=== PATIENT | male | born 1950 | race Caucasian/White ===

== ENCOUNTER 2021-10-03 09:02 | Inpatient (IN) | payer MEDICARE, SELFPAY ==
[2021-10-03] VITALS (57 sets, daily range): BP systolic 89–155; BP diastolic 54–109; PULSE 46–116; RESP 5–38; TEMP 36–36.8; O2SAT 76–97
--- NOTE | 2021-10-03 09:00 | RT.EKG_ITS ---
APPROVED REPORT Exam: Resting ECG Reason for Exam: covid Patient Location: E HR:98 bpm ECG Measurements Heart Rate 98 AXIS AK 108 P 55 QRSd 84 QRS 24 QT 362 T 39 QTc 463 Conclusion Sinus rhythm...normal P axis, V-rate 60- 99 Consider left ventricular hypertrophy...(S V1+R V5/V6) >3.50mV
--- NOTE | 2021-10-03 09:30 | DI.CT_ITS ---
Exam(s) CT CHEST PE CTA EXAM: CT CHEST PE CTA CLINICAL HISTORY: hypoxia, covid. TECHNIQUE: Imaging Protocol: Axial CT angiography was performed with multi-slice acquisition and mu lti-planar and/or 3D reconstructions. CONTRAST MATERIAL: Intravenous: Omnipaque 350 Contrast volume:100 mL COMPARISON: CT CHEST FOR PULMONARY EMBOLUS from 01/20/2011 FINDINGS: Tracheobronchial tree: Patent where visualized. Pulmonary parenchyma: Multifocal ground-glass opacities are present consistent with pneumonia. Findi ngs would be consistent with a COVID-19 infection. Emphysematous changes are present in the lungs. Calcified granuloma is seen in the left upper lobe. There is again seen scarring in the lung apices and the right middle lobe associated with the fissure. Pulmonary Arteries: No evidence of filling defect to suggest pulmonary emboli. Mediastinum and Breanne: No dominant adenopathy or fluid collection. The esophagus is unremarkable. Visualized thyroid gland: Unremarkable. Pleura: No effusion or pneumothorax. Heart: The heart is not dilated. No coronary artery calcifications are seen. No pericardial effusion. Aorta: Thoracic aorta non-dilated. No evidence of dissection. Atherosclerosis. Upper abdomen: Unremarkable. Soft tissues: Mild bilateral gynecomastia. Bones: Within normal limits for the patient's age. IMPRESSION: 1. No evidence of pulmonary embolism, thoracic aortic dissection or aneurysm. 2. Multifocal ground-glass opacities consistent with pneumonia. The findings would be consistent wit h a COVID-19 infection. 3. Results of this exam have been verbally communicated with provider. RADIATION DOSE DELIVERED: 380.46mGy.cm Total DLP DATA REPOSITORY: All CT scans at this facility are submitted to the National Radiology Data Registry (NRDR) Dose Index Registry (DIR) with the [employer] (A[employer]). RADIATION OPTIMIZATION: All CT scans at this facility use at least one of these dose optimization te chniques: automated exposure control; mA and/or kV adjustment per patient size (includes targeted exa ms where dose is matched to clinical indication); or iterative reconstruction.
[2021-10-03 09:42] LABS: Abs Immature Grans 0.02 10^3/uL (0.0-0.06); Absolute Basophil Count 0.01 10^3/uL (0.0-0.2); Absolute Lymphocyte Count 0.65 10^3/uL (1.2-3.4); Absolute Monocyte Count 0.55 10^3/uL (0.1-0.8); Absolute Neutrophil Count 5.07 10^3/uL (1.2-6.7); Basophils % 0.2; HCT 46.5 % (40.0-50.0); HGB 16.1 g/dL (13.5-17.5); Immature Grans % 0.3; Lymphocytes % 10.3; MCH 33.3 pg (27.0-33.0); MCHC 34.6 % (32.0-36.0); MCV 96.3 fL (80-95); MPV 10.7 fL (8.0-11.0); Monocytes % 8.7; Neutrophils % 80.5; Nucleated RBC 0 %; Platelet Count 212 10^3/uL (130-400); RBC 4.83 10^6/uL (4.36-5.78); RDW 12.5 % (11.8-14.1); RDW-SD 45.3 fL
[2021-10-03 09:43] LABS: BE (Venous) 0 mmol/L (-2-3); HCO3 (Venous) 23 mmol/L (23-28); O2 Sat (Venous) 96 %; TCO2 (Venous) 24 mmol/l (24-29); pCO2 (Venous) 31 mmHg (41-51); pH (Venous) 7.49 (7.31-7.41); pO2 (Venous) 75 mmHg
[2021-10-03 09:44] LABS: Lactate 3.8 mmol/L (0.9-1.7)
[2021-10-03] MEDS: Dexamethasone 4 MG/ML VIAL 6 MG IVP (09:48)
[2021-10-03] MEDS: Normal Saline 1,000 ML 1000 ML IV (09:48)
[2021-10-03 09:49] LABS: Source Nasal/Nares
[2021-10-03] MEDS: Albuterol/Ipratropium 3 ML UPD VIAL UPD (09:53)
[2021-10-03 10:03] LABS: ALT 88 U/L (16-63); AST 127 U/L (15-37); Alkaline Phosphatase 105 U/L (46-116); BUN 18 mg/dL (7-18); CREATININE 1.1 mg/dL (0.70-1.30); Calcium 8.7 mg/dL (8.5-10.1); Chloride 99 mmol/L (98-107); Glucose 161 mg/dL (74-106); Potassium 3.3 mmol/L (3.5-5.1); Sodium 134 mmol/L (136-145); Total Protein 7.7 g/dL (6.4-8.2); Troponin I < 50 ng/L (<or=60)
[2021-10-03 10:08] LABS: NT-proBNP 344 pg/mL (<300)
[2021-10-03] MEDS: cefTRIAXone 2 GM/50 ML BAG IVPB (10:08)
[2021-10-03 10:20] LABS: D-Dimer 1358 ng/mlFEU (<500)
[2021-10-03 10:29] LABS: Influenza A PCR Negative (Negative); Influenza B PCR Negative (Negative); RSV PCR Negative (Negative)
[2021-10-03 10:31] LABS: COVID-19 PCR POSITIVE (Negative)
--- NOTE | 2021-10-03 10:40 | ED.GENADUL_ITS ---
Discharge Plan Disposition Patient Disposition: [facility] INPATIENT Condition: Critical Discharge Details Clinical Impression: Pneumonia due to COVID-19 virus, Respiratory failure Admit Date/Time: 10/03/21 12:12 Admit Provider: Iftikhar Tse Attending Provider: Iftikhar Tse Primary Care Provider: Kierra Lopez V ED Provider: Gertrude Torres Discharge Data Discharge Date/Time-TO BE ENTERED AT DEPARTURE: 10/03/21 13:16 Medical Decision Making <Jaison Shah MD - Last Filed: 10/09/21 16:46> Patient seen, examined, and discussed with CHEVY Torres. I agree with treatment plan as discussed/documented. <CHEVY Esparza - Last Filed: 10/04/21 08:33> Patient appears chronically unwell He is quite hypoxic, 70% on room air, he is placed on supplemental oxygen at 2 L, he remains 84% He was subsequently placed on BiPAP by respiratory therapist, please see their documentation He is tolerating this well His CODE STATUS is DNR/DNI, this was confirmed with patient's on 2 separate occasions There was mention that patient has history of alcoholism, he has not had a drink for the past 2 years he reports He is Covid vaccinated but has not received booster His CT of his chest does not show evidence of PE but diffuse bilateral interstitial infiltrates consistent with likely Covid pneumonia He is given a dose of Decadron 6 mg, remdesivir, 200 mg, IV fluid resuscitation His lactate is markedly elevated at 3.68 however he is not in septic shock at this time therefore fluid infusion will be ordered Again attempt to order VBG upon arrival, however this was reportedly canceled, we will redraw Covid swab is positive Patient will need admission for further observation and intervention He is agreeable to admission at this time He is not exhibited any signs or symptoms of alcohol withdrawal and was placed on CIWA upon arrival Did give 1 dose of 2 g of ceftriaxone given lactic acidosis and pneumonia, I will leave further antibiotic use to the discretion of the admitting provider Case discussed with Dr. Tse who is agreed to admit the patient Please see attendings ED EKG interpretation Medical Records Medical records reviewed: Yes I reviewed the patient's medical records. Lab Data Lab results reviewed: Yes I reviewed the patient's lab results. ECG Data Prior ECG tracings: available for review HPI <Jaison Shah MD - Last Filed: 10/09/21 16:46> General Date/Time Provider Initiated Documentation: 10/03/21 09:11 . Related Data Home Medications Medication Instructions Recorded Confirmed Unknown [No Known Home Meds] 10/03/21 10/07/21 Allergies Allergy/AdvReac Type Severity Reaction Status Date / Time No Known Allergies Allergy Unverified 10/07/21 09:50 <CHEVY Esparza - Last Filed: 10/04/21 08:33> General Mode of arrival: ambulatory . Limitations to Documentation: no limitations . Information obtained by: patient . HPI Narrative: This 70-year-old male who denies any current medications or medical history presents with 2 days of shortness of breath and pain. He a Covid test 2 days a go which was positive. He states that today secondary to progressive worsening of the shortness of breath, he presents for assessment. He states he has chest pain with cough only. He denies any nausea or vomiting. He denies any fever or chills. He denies history of coagulopathy. He denies any calf pain or swelling. He denies any rashes or lesions. Patient states that he is vaccinated but not restarted. He reports sore throat and mild headache. Patient denies tobacco abuse or history of COPD. General Stated Complaint: RespSymp ADA: 3 <CHEVY Esparza - Last Filed: 10/04/21 08:33> All systems reviewed & are unremarkable except as noted in HPI and below PFSH <Jaison Shah MD - Last Filed: 10/09/21 16:46> All Active Problems (Updated 10/07/21 @ 16:16 by Omayra Gould MD) Discharge planning issues (Acute) DVT prophylaxis (Acute) Secondary bacterial pneumonia (Acute) Hypoxia (Acute) Requires supplemental oxygen (Acute) Respiratory failure with hypoxia (Acute) Transaminitis (Acute) Hyponatremia (Acute) Pneumonia due to COVID-19 virus (Acute) Medical History Alcohol abuse no reported drink for 2 years Social History Smoking/Tobacco Use Status: Never Smoking risk assessment performed?: Yes Alcohol Intake: former Drug use: Never Substance use type: does not use Do you feel safe at home: Yes Do you feel safe in your relationship?: Yes <CHEVY Esparza - Last Filed: 10/04/21 08:33> Const General: ill appearing Orientation: alert and oriented x3 HENMT Other: Uvula midline, moist mucous membrane, rhinorrhea Eyes Pupils: PERRL Neck Other: No stridor Resp Other: Diminished lung sounds and tachypneic, mild respiratory distress, no wheeze Cardio Rate: tachycardic Rhythm: regular rhythm GI Other: Nontender abdominal exam Skin General skin exam: no rashes or lesions noted Neuro General: patient alert and patient oriented x3 Extrem Other: No calf swelling or tenderness <CHEVY Esparza - Last Filed: 10/04/21 08:33> Vital Signs Vital signs: Vital Signs Temperature 36.8 C 10/03/21 09:10 Pulse 111 H 10/03/21 09:10 Respiratory Rate 22 10/03/21 09:10 Blood Pressure 137/69 10/03/21 09:10 Pulse Oximetry 76 L 10/03/21 09:10 Temperature 36.8 C 10/03/21 09:10 Temperature Source Temporal Artery Scan 10/03/21 09:10 Pulse 101 H 10/03/21 10:16 Pulse 83 10/03/21 10:16 Respiratory Rate 20 10/03/21 10:16 Respiratory Effort 10/03/21 10:14 Respiratory Depth Normal 10/03/21 10:14 Blood Pressure 122/77 10/03/21 10:16 Blood Pressure Mean 87 10/03/21 10:16 Blood Pressure Position Sitting 10/03/21 09:10 Pulse Oximetry 95 10/03/21 10:16 Oxygen Delivery Method Cpap 10/03/21 10:24 Oxygen Flow Rate 0 10/03/21 09:10 Fraction of Inspired Oxygen (FIO2) 40 10/03/21 10:24 Comment 10/03/21 10:24 Lab/Test Results Lab/Test Results: 10/03/21 09:30 Blood Blood Culture - Pending 10/03/21 09:40 Blood Blood Culture - Pending Laboratory Tests Range/Units 10/03/21 10/03/21 10/03/21 09:30 09:30 09:30 WBC (4.4-10.8) 10^3/uL 6.30 RBC (4.36-5.78) 10^6/uL 4.83 Hgb (13.5-17.5) g/dL 16.1 Hct (40.0-50.0) % 46.5 MCV (80-95) fL 96.3 H MCH (27.0-33.0) pg 33.3 H MCHC (32.0-36.0) % 34.6 RDW (11.8-14.1) % 12.5 Plt Count (130-400) 10^3/uL 212 MPV (8.0-11.0) fL 10.7 Immature Gran % 0.3 Neutrophils % 80.5 Lymphocytes % 10.3 Monocytes % 8.7 Eosinophils % 0.0 Basophils % 0.2 Nucleated RBC % % 0 Absolute Neutrophils (1.2-6.7) 10^3/uL 5.07 Absolute Lymphocytes (1.2-3.4) 10^3/uL 0.65 L Absolute Monocytes (0.1-0.8) 10^3/uL 0.55 Absolute Eosinophils (0.0-0.7) 10^3/uL 0.00 Absolute Basophils (0.0-0.2) 10^3/uL 0.01 D-Dimer (<500) ng/mlFEU VBG pH (7.31-7.41) VBG pCO2 (41-51) mmHg VBG pO2 mmHg VBG HCO3 (23-28) mmol/L VBG Total CO2 (24-29) mmol/l VBG O2 Saturation % VBG Base Excess (-2-3) mmol/L VBG Lactate (0.9-1.7) mmol/L 3.8 H* Sodium (136-145) mmol/L 134 L Potassium (3.5-5.1) mmol/L 3.3 L Chloride (98-107) mmol/L 99 Carbon Dioxide (21.0-32.0) mmol/L 23.0 Anion Gap (3-11) mmol/L 12.0 H BUN (7-18) mg/dL 18 Creatinine (0.70-1.30) mg/dL 1.1 Estimated GFR/1.73 m2 (mL/min/1.73m2) >= 60.00 Glucose (74-106) mg/dL 161 H Calcium (8.5-10.1) mg/dL 8.7 Total Bilirubin (0.2-1.0) mg/dL 1.0 AST (15-37) U/L 127 H ALT (16-63) U/L 88 H Alkaline Phosphatase (46-116) U/L 105 Troponin I (<or=60) ng/L < 50 NT-Pro-B Natriuret Pep (<300) pg/mL Total Protein (6.4-8.2) g/dL 7.7 Albumin (3.4-5.0) g/dL 3.0 L COVID-19 Source SARS-CoV-2 (PCR) (Negative) Influenza Type A (PCR) (Negative) Influenza Type B (PCR) (Negative) RSV (PCR) (Negative) Range/Units 10/03/21 10/03/21 10/03/21 09:30 09:30 09:40 WBC (4.4-10.8) 10^3/uL RBC (4.36-5.78) 10^6/uL Hgb (13.5-17.5) g/dL Hct (40.0-50.0) % MCV (80-95) fL MCH (27.0-33.0) pg MCHC (32.0-36.0) % RDW (11.8-14.1) % Plt Count (130-400) 10^3/uL MPV (8.0-11.0) fL Immature Gran % Neutrophils % Lymphocytes % Monocytes % Eosinophils % Basophils % Nucleated RBC % % Absolute Neutrophils (1.2-6.7) 10^3/uL Absolute Lymphocytes (1.2-3.4) 10^3/uL Absolute Monocytes (0.1-0.8) 10^3/uL Absolute Eosinophils (0.0-0.7) 10^3/uL Absolute Basophils (0.0-0.2) 10^3/uL D-Dimer (<500) ng/mlFEU 1358 H VBG pH (7.31-7.41) 7.49 H VBG pCO2 (41-51) mmHg 31 L VBG pO2 mmHg 75 VBG HCO3 (23-28) mmol/L 23 VBG Total CO2 (24-29) mmol/l 24 VBG O2 Saturation % 96 VBG Base Excess (-2-3) mmol/L 0 VBG Lactate (0.9-1.7) mmol/L Sodium (136-145) mmol/L Potassium (3.5-5.1) mmol/L Chloride (98-107) mmol/L Carbon Dioxide (21.0-32.0) mmol/L Anion Gap (3-11) mmol/L BUN (7-18) mg/dL Creatinine (0.70-1.30) mg/dL Estimated GFR/1.73 m2 (mL/min/1.73m2) Glucose (74-106) mg/dL Calcium (8.5-10.1) mg/dL Total Bilirubin (0.2-1.0) mg/dL AST (15-37) U/L ALT (16-63) U/L Alkaline Phosphatase (46-116) U/L Troponin I (<or=60) ng/L NT-Pro-B Natriuret Pep (<300) pg/mL 344 H Total Protein (6.4-8.2) g/dL Albumin (3.4-5.0) g/dL COVID-19 Source SARS-CoV-2 (PCR) (Negative) Influenza Type A (PCR) (Negative) Influenza Type B (PCR) (Negative) RSV (PCR) (Negative) Range/Units 10/03/21 09:45 WBC (4.4-10.8) 10^3/uL RBC (4.36-5.78) 10^6/uL Hgb (13.5-17.5) g/dL Hct (40.0-50.0) % MCV (80-95) fL MCH (27.0-33.0) pg MCHC (32.0-36.0) % RDW (11.8-14.1) % Plt Count (130-400) 10^3/uL MPV (8.0-11.0) fL Immature Gran % Neutrophils % Lymphocytes % Monocytes % Eosinophils % Basophils % Nucleated RBC % % Absolute Neutrophils (1.2-6.7) 10^3/uL Absolute Lymphocytes (1.2-3.4) 10^3/uL Absolute Monocytes (0.1-0.8) 10^3/uL Absolute Eosinophils (0.0-0.7) 10^3/uL Absolute Basophils (0.0-0.2) 10^3/uL D-Dimer (<500) ng/mlFEU VBG pH (7.31-7.41) VBG pCO2 (41-51) mmHg VBG pO2 mmHg VBG HCO3 (23-28) mmol/L VBG Total CO2 (24-29) mmol/l VBG O2 Saturation % VBG Base Excess (-2-3) mmol/L VBG Lactate (0.9-1.7) mmol/L Sodium (136-145) mmol/L Potassium (3.5-5.1) mmol/L Chloride (98-107) mmol/L Carbon Dioxide (21.0-32.0) mmol/L Anion Gap (3-11) mmol/L BUN (7-18) mg/dL Creatinine (0.70-1.30) mg/dL Estimated GFR/1.73 m2 (mL/min/1.73m2) Glucose (74-106) mg/dL Calcium (8.5-10.1) mg/dL Total Bilirubin (0.2-1.0) mg/dL AST (15-37) U/L ALT (16-63) U/L Alkaline Phosphatase (46-116) U/L Troponin I (<or=60) ng/L NT-Pro-B Natriuret Pep (<300) pg/mL Total Protein (6.4-8.2) g/dL Albumin (3.4-5.0) g/dL COVID-19 Source Nasal/Nares SARS-CoV-2 (PCR) (Negative) POSITIVE A* Influenza Type A (PCR) (Negative) Negative Influenza Type B (PCR) (Negative) Negative RSV (PCR) (Negative) Negative <CHEVY Esparza - Last Filed: 10/04/21 08:33> Critical Care Time Critical Care Time: Yes Total Critical Care Time: 60 Attestation: BiPAP administration, telemetry monitoring, IV antibiotic intervention, IV fluid intervention, diagnostic labs, diagnostic imaging, post BiPAP monitoring, admission to intensive care unit
[2021-10-03] MEDS: REMDESIVIR 200 MG in Normal Saline 250 ML 250 MG IVPB (11:22)
[2021-10-03] MEDS: Omnipaque 350 MG/ML 100 ML BTL IJ (11:32)
[2021-10-03 12:53] LABS: Lab Add On Test DONE
[2021-10-03 13:08] LABS: C-Reactive Protein 11.45 mg/dL (0.0-0.3)
--- NOTE | 2021-10-03 14:24 | W.PM.HP.N ---
Date of service: 10/03/21 Time of Service: 14:25 Assessment and Plan Assessment and plan (1) Pneumonia due to COVID-19 virus: Status: Acute Assessment and plan: Unvaccinated. Initiated Remdesivir, dexamethasone, baricitinib, Vit D, C and zinc. CPAP alternating with Hiflow. D dimer 1358. CRP 11.45. Trend inflammatory markers. Avoid volume overload. (2) Hyponatremia: Status: Acute Assessment and plan: Mild; monitor. Likely related to viral infection / COVID. (3) Hypokalemia: Status: Acute Assessment and plan: Replace with oral K Monitor (4) Alcohol abuse: Status: Chronic Assessment and plan: Monitor for signs/sxs of withdrawal. PRN ativan. If appears to be withdrawing will initiate CIWA protocol. (5) Transaminitis: Status: Acute Assessment and plan: Likely Etoh abuse related. Monitor. History of Present Illness History of Present Illness Chief Complaint: Shortness of breath Narrative: This is a 70 yo male with no known PMH though he doesn't see a doctor or other provider. On no home medications. He tested positive for COVID-19 2 days prior to presentation. C/O shortness of air. No loss of taste or sense of smell. In the ED Covid-19 confirmed as positive. WBC count normal. Na 134. K 3.3. Creatinine 1.1. Glucose 161. AST 127. ALT 88. NTProBNP 344 CT chest results: 1. No evidence of pulmonary embolism, thoracic aortic dissection or aneurysm. 2. Multifocal ground-glass opacities consistent with pneumonia. The findings would be consistent with a COVID-19 infection. Placed on CPAP in ED; tolerated well. Review of Systems All systems reviewed & are unremarkable except as noted in HPI and below PFSH All Active Problems (Updated 10/03/21 @ 14:45 by Iftikhar Tse MD) Transaminitis (Acute) Alcohol abuse (Chronic) Hypokalemia (Acute) Hyponatremia (Acute) Pneumonia due to COVID-19 virus (Acute) Social History Smoking/Tobacco Use Status: Never Smoking risk assessment performed?: Yes Alcohol Intake: former Drug use: Never Substance use type: does not use Do you feel safe at home: Yes Do you feel safe in your relationship?: Yes Meds Allergies and Home Medications Allergies Allergy/AdvReac Type Severity Reaction Status Date / Time No Known Allergies Allergy Unverified 10/03/21 14:51 Home Medications Medication Instructions Recorded Confirmed Type Unknown [No Known Home Meds] 10/03/21 10/03/21 History Exam Const General: cooperative, no acute distress and other (CPAP in place) Nutritional Appearance: thin Orientation: alert and oriented x3 HENMT Head: normal to inspection, normocephalic and atraumatic Eyes General: appearance normal, both eyes and all related structures Sclera: sclerae normal Resp Effort & Inspection: normal respiratory effort Auscultation: clear to auscultation bilaterally (anterior) Cardio Rate: regular rate Rhythm: regular rhythm Heart Sounds: S1 normal and S2 normal GI Palpation: soft and nontender Skin General skin exam: no rashes or lesions noted and other (multiple tattoos) Neuro General: moves all extremities Speech: speech normal Extrem General: no pedal edema and no calf tenderness Results Labs Result diagrams: 10/03/21 09:30 10/03/21 09:30 Labs: Laboratory Results - last 24 hr 10/03/21 10/03/21 10/03/21 09:30 09:30 09:30 WBC 6.30 RBC 4.83 Hgb 16.1 Hct 46.5 MCV 96.3 H MCH 33.3 H MCHC 34.6 RDW 12.5 Plt Count 212 MPV 10.7 Immature Gran % 0.3 Neutrophils % 80.5 Lymphocytes % 10.3 Monocytes % 8.7 Eosinophils % 0.0 Basophils % 0.2 Nucleated RBC % 0 Absolute Neutrophils 5.07 Absolute Lymphocytes 0.65 L Absolute Monocytes 0.55 Absolute Eosinophils 0.00 Absolute Basophils 0.01 D-Dimer VBG pH VBG pCO2 VBG pO2 VBG HCO3 VBG Total CO2 VBG O2 Saturation VBG Base Excess VBG Lactate 3.8 H* Sodium 134 L Potassium 3.3 L Chloride 99 Carbon Dioxide 23.0 Anion Gap 12.0 H BUN 18 Creatinine 1.1 Estimated GFR/1.73 m2 >= 60.00 Glucose 161 H Calcium 8.7 Total Bilirubin 1.0 AST 127 H ALT 88 H Alkaline Phosphatase 105 Troponin I < 50 C-Reactive Protein NT-Pro-B Natriuret Pep Total Protein 7.7 Albumin 3.0 L COVID-19 Source SARS-CoV-2 (PCR) Influenza Type A (PCR) Influenza Type B (PCR) RSV (PCR) Add-On Test Request 10/03/21 10/03/21 10/03/21 09:30 09:30 09:40 WBC RBC Hgb Hct MCV MCH MCHC RDW Plt Count MPV Immature Gran % Neutrophils % Lymphocytes % Monocytes % Eosinophils % Basophils % Nucleated RBC % Absolute Neutrophils Absolute Lymphocytes Absolute Monocytes Absolute Eosinophils Absolute Basophils D-Dimer 1358 H VBG pH 7.49 H VBG pCO2 31 L VBG pO2 75 VBG HCO3 23 VBG Total CO2 24 VBG O2 Saturation 96 VBG Base Excess 0 VBG Lactate Sodium Potassium Chloride Carbon Dioxide Anion Gap BUN Creatinine Estimated GFR/1.73 m2 Glucose Calcium Total Bilirubin AST ALT Alkaline Phosphatase Troponin I C-Reactive Protein NT-Pro-B Natriuret Pep 344 H Total Protein Albumin COVID-19 Source SARS-CoV-2 (PCR) Influenza Type A (PCR) Influenza Type B (PCR) RSV (PCR) Add-On Test Request 10/03/21 10/03/21 10/03/21 09:40 09:40 09:45 WBC RBC Hgb Hct MCV MCH MCHC RDW Plt Count MPV Immature Gran % Neutrophils % Lymphocytes % Monocytes % Eosinophils % Basophils % Nucleated RBC % Absolute Neutrophils Absolute Lymphocytes Absolute Monocytes Absolute Eosinophils Absolute Basophils D-Dimer VBG pH VBG pCO2 VBG pO2 VBG HCO3 VBG Total CO2 VBG O2 Saturation VBG Base Excess VBG Lactate Sodium Potassium Chloride Carbon Dioxide Anion Gap BUN Creatinine Estimated GFR/1.73 m2 Glucose Calcium Total Bilirubin AST ALT Alkaline Phosphatase Troponin I C-Reactive Protein 11.45 H NT-Pro-B Natriuret Pep Total Protein Albumin COVID-19 Source Nasal/Nares SARS-CoV-2 (PCR) POSITIVE A* Influenza Type A (PCR) Negative Influenza Type B (PCR) Negative RSV (PCR) Negative Add-On Test Request DONE Last Vital Signs Temp 36.8 C 10/03/21 09:10 Pulse 83 10/03/21 12:46 Resp 28 H 10/03/21 12:46 BP 120/72 10/03/21 12:46 Pulse Ox 97 10/03/21 12:46
--- NOTE | 2021-10-03 14:33 | NUR.NOTE ---
This blog writer called Marline Henry, on patients hipaa form. Requesting dentures for a better seal with c-pap per RTs request. Marline stated that Jenna would be able to bring them when she gets off of work and I let Marline know that even if its after visiting hours that we can still get the dentures to the patient. Nursing Note:
[2021-10-03] MEDS: Enoxaparin 40 MG/0.4 ML SYR SC (15:29)
[2021-10-03] MEDS: Normal Saline Flush 10 ML SYR IVP (15:30)
[2021-10-03] MEDS: LORazepam 0.5 MG TAB PO (19:16)
[2021-10-03] MEDS: Potassium Chloride 20 MEQ TABCR PO (19:16)
[2021-10-03] MEDS: Ascorbic Acid 500 MG TAB 1000 MG PO (19:16)
[2021-10-03 21:48] LABS: Bilirubin Negative (Negative); Blood Negative (Negative); Clarity Clear (Clear); Glucose Negative (Negative); Ketones Negative (Negative); Leukocyte Esterase Negative (Negative); Nitrite Negative (Negative); Specific Gravity 1.025 (1.005-1.025); pH 6.5 (5-8)
[2021-10-03 21:59] LABS: Bacteria Negative HPF (Negative); C & S Indicated? No; Crystals Negative HPF (Negative); Epithelial Cells Negative HPF (Negative); Mucus Moderate (Negative); RBC Negative HPF (0-2); WBC 0-2 HPF (0-5)
[2021-10-04] VITALS (93 sets, daily range): BP systolic 89–126; BP diastolic 51–71; PULSE 51–85; RESP 16–33; TEMP 36.2–36.6; O2SAT 90–96
[2021-10-04 07:11] LABS: Abs Immature Grans 0.02 10^3/uL (0.0-0.06); Absolute Lymphocyte Count 0.72 10^3/uL (1.2-3.4); Absolute Monocyte Count 0.33 10^3/uL (0.1-0.8); Absolute Neutrophil Count 3.64 10^3/uL (1.2-6.7); HCT 44.8 % (40.0-50.0); Immature Grans % 0.4; Lymphocytes % 15.3; MCH 33.3 pg (27.0-33.0); MCHC 33.5 % (32.0-36.0); MCV 99.3 fL (80-95); MPV 11.1 fL (8.0-11.0); Neutrophils % 77.3; Nucleated RBC 0 %; Platelet Count 195 10^3/uL (130-400); RBC 4.51 10^6/uL (4.36-5.78); RDW 12.8 % (11.8-14.1); RDW-SD 47.3 fL; WBC 4.71 10^3/uL (4.4-10.8)
[2021-10-04 07:31] LABS: ALT 63 U/L (16-63); AST 75 U/L (15-37); Albumin 2.4 g/dL (3.4-5.0); Alkaline Phosphatase 85 U/L (46-116); Anion Gap 10.5 mmol/L (3-11); BUN 20 mg/dL (7-18); Bilirubin, Total 0.6 mg/dL (0.2-1.0); C-Reactive Protein 10.41 mg/dL (0.0-0.3); CO2 22.5 mmol/L (21.0-32.0); CREATININE 0.8 mg/dL (0.70-1.30); Calcium 8.4 mg/dL (8.5-10.1); Chloride 104 mmol/L (98-107); Glucose 143 mg/dL (74-106); Sodium 137 mmol/L (136-145); Total Protein 6.8 g/dL (6.4-8.2)
[2021-10-04 08:15] LABS: D-Dimer 1124 ng/mlFEU (<500)
--- NOTE | 2021-10-04 08:36 | INITIAL_ITS ---
- If Service Date Differs Date of service: 10/04/21 Time of Service: 08:36 Care Management Initial Assess REASON FOR HOSPITALIZATION:: Covid 19 Pneumonia PAST MEDICAL HISTORY/PAST SURGICAL HISTORY:: All Active Problems. Transaminitis (Acute). Alcohol abuse (Chronic). Hypokalemia (Acute). Hyponatremia (Acute). Pneumonia due to COVID-19 virus (Acute) PREVIOUS FUNCTIONAL STATUS/SOCIAL/FAMILY SUPPORTS:: Bryan lives in [facility] with his s/o, Marline. He is independent at baseline. CURRENT FUNCTIONAL STATUS:: Bryan is currently on Covid 19 precautions, therefore CM is not able to meet with him in person. CM attempted to call the phone in his room, but was unsuccessful. Per report, he was moved to M/S today, as he is feeling better and improving. He is on 6L O2 NC when not using the CPAP. He is being monitored for signs of alcohol withdrawal. CM will continue to follow. ADVANCE DIRECTIVES:: None on file. Has patient been provided with info about the portal/API?: No Did the patient sign up for the portal?: No CODE STATUS:: DNR/DNI INSURANCE COVERAGE / FINANCIAL ISSUES:: [facility] CURRENT HOME/COMMUNITY SERVICES/EQUIPMENT:: No known services or equipment. PRIMARY CARE PHYSICIAN:: Kierra Lopez POTENTIAL DISCHARGE NEEDS:: Evaluations for further needs, follow up appointments. PATIENT/FAMILY EDUCATION NEEDS:: Review discharge instructions and limitations, discussion of self care needs including ask me three. ANTICIPATED BARRIERS TO DISCHARGE:: None identified at this time. TRANSPORTATION:: Via private vehicle by family. PLAN:: Bryan will likely return home when medically cleared. He will be driven home via private vehicle by family. He will follow up with his PCP and discharge plan of care. CM will continue to follow.
[2021-10-04] MEDS: Potassium Chloride 20 MEQ TABCR PO ×2 (08:55→20:00)
[2021-10-04] MEDS: Normal Saline Flush 10 ML SYR IVP (08:55)
[2021-10-04] MEDS: Cholecalciferol (Vitamin D3) 1,000 UNIT TAB 2000 UNITS PO (08:55)
[2021-10-04] MEDS: Zinc Sulfate 220 MG TAB PO (08:55)
[2021-10-04] MEDS: Ascorbic Acid 500 MG TAB 1000 MG PO ×2 (08:55→20:00)
[2021-10-04] MEDS: REMDESIVIR 100 MG in Normal Saline 250 ML 250 MG IVPB (08:56)
[2021-10-04] MEDS: Dexamethasone 4 MG/ML VIAL 6 MG IVP (08:59)
--- NOTE | 2021-10-04 09:13 | PUCC_ITS ---
General Date of Service Date of service: 10/04/21 Time of Service: 07:30 Reason for Admission to ICU: COVID-19 and hypoxic respiratory failure Assessment and Plan Assessment and plan (1) Respiratory failure with hypoxia: Status: Acute (2) Pneumonia due to COVID-19 virus: Status: Acute (3) Hypokalemia: Status: Acute (4) Hyponatremia: Status: Acute (5) Transaminitis: Status: Acute (6) Lactic acidosis: Status: Acute Assessment and plan: This is a 70 yo man who previously was not receiving medical care who is admitted to the ICU for COVID-19 and respiratory failure. He did well overnight with CPAP and tolerate 6LPM nasal cannula. He did have elevated inflammatory markers so was started on barcitinib in addition to remdesivir and Decadron. He did have an elevated lactate, which is likely due to his respiratory distress when he first presented, but we should repeat this. He had elevated LFT's, which has since improved significantly and so was likely in response to hypoxia. He is stable and is safe for transfer to med/surg status. Recommendations Pulmonary: Hypoxic Respiratory Failure - continue CPAP at night until approaching discharge - nasal cannula during the day to facilitate ambulation and nutrition - Incentive Spirometry and Acapella - out of bed to chair and ambulation as able Cardiac: No acute concerns Renal: Elevated Lactate - likely due to hypoxia/respiratory failure - will repeat today - if decreased no need to further test I&O: Intake & Output 10/01/21 10/02/21 10/03/21 10/04/21 23:59 23:59 23:59 23:59 Intake Total 1310 / 1310 Output Total 600 / 600 Balance 710 / 710 Weight 66 kg Daily Fluid Goal:: even to negative balance daily GI Nutrition: OK for diet Date of Last Bowel Movement: 10/03/21 Infectious Disease: COVID-19 Pneumonia - agree with Decadron, remdesivir and barcitinib - if after tomorrow inflammatory markers continue to improve, these can be spaced out to twice a week and prn - can consider procalcitonin if bacterial suprainfection becomes a concern, but I currently do not have a large suscipicion for this Hematologic: No acute concerns Neurologic: No acute concerns Endocrine: On Decadron - continue daily glucose checks with labs Lines: PIV Prophylaxis: Lovenox No indication for GI ppx currently Code Status: Resuscitation Status DNR/DNI Subjective Critical and life-threatening events over the past 24 hours: This is a 70 yo man who does not receive medical care and who is unvaccinated who is admitted for COVID-19 pneumonia. He tested positive for COVID on 10/03/21 and unfortunately developed worsening SOB. He was started on CPAP in the ED due to respiratory distress and was placed in the ICU. He tolerates 6LPM nasal cannula fine and overnight on CPAP only required 35% FiO2. He is receiving remdesivir, barcitinib and Decadron. His chest CT found no PE and did find bilateral multilobar pneumonia due to COVID. Today he is doing well. He feels better with the oxygen therapy. He does have a cough but it is dry. Exam Const General: no acute distress Nutritional Appearance: well nourished [facility] Head: normocephalic Ears: external ears normal and no periauricular adenopathy General nose exam: nasal mucous membranes and turbinates normal Face and sinus: sinuses nontender Mouth: oropharynx normal and moist mucous membranes Teeth and gingiva: dentition normal Eyes General: appearance normal, both eyes and all related structures Pupils: PERRL Neck Neck: normal visual inspection and no lymphadenopathy Chest Chest: normal inspection of the chest Resp Effort & Inspection: normal respiratory effort Auscultation: diminished lung sounds, no rales, no rhonchi and no wheezes Cardio Rate: regular rate Rhythm: regular rhythm Heart Sounds: S1 normal, S2 normal and no murmurs Pulses: radial pulses present bilaterally GI Inspection: normal to inspection Palpation: soft Skin General skin exam: no rashes or lesions noted Neuro General: patient alert, patient awake and patient oriented x3 Extrem General: no clubbing, cyanosis or edema Psych Mental Status: mental status grossly normal Affect: normal affect Attitude: cooperative Most Recent VS/Results Last Vital Signs Temp 36.6 C 10/04/21 04:00 Pulse 65 10/04/21 07:00 Resp 25 H 10/04/21 07:01 BP 103/61 10/04/21 07:00 Pulse Ox 92 10/04/21 07:01 Laboratory Results - last 24 hr 10/03/21 10/03/21 10/03/21 09:30 09:30 09:30 WBC 6.30 RBC 4.83 Hgb 16.1 Hct 46.5 MCV 96.3 H MCH 33.3 H MCHC 34.6 RDW 12.5 Plt Count 212 MPV 10.7 Immature Gran % 0.3 Neutrophils % 80.5 Lymphocytes % 10.3 Monocytes % 8.7 Eosinophils % 0.0 Basophils % 0.2 Nucleated RBC % 0 Absolute Neutrophils 5.07 Absolute Lymphocytes 0.65 L Absolute Monocytes 0.55 Absolute Eosinophils 0.00 Absolute Basophils 0.01 D-Dimer VBG pH VBG pCO2 VBG pO2 VBG HCO3 VBG Total CO2 VBG O2 Saturation VBG Base Excess VBG Lactate 3.8 H* Sodium 134 L Potassium 3.3 L Chloride 99 Carbon Dioxide 23.0 Anion Gap 12.0 H BUN 18 Creatinine 1.1 Estimated GFR/1.73 m2 >= 60.00 Glucose 161 H Hemoglobin A1c Calcium 8.7 Total Bilirubin 1.0 AST 127 H ALT 88 H Alkaline Phosphatase 105 Troponin I < 50 C-Reactive Protein NT-Pro-B Natriuret Pep Total Protein 7.7 Albumin 3.0 L Urine Color Urine Clarity Urine pH Ur Specific Stephen Urine Protein Urine Ketones Urine Blood Urine Nitrite Urine Bilirubin Urine Urobilinogen Ur Leukocyte Esterase Urine RBC Urine WBC Ur Epithelial Cells Urine Crystals Urine Bacteria Urine Mucus Ur Culture Indicated? Urine Glucose COVID-19 Source SARS-CoV-2 (PCR) Influenza Type A (PCR) Influenza Type B (PCR) RSV (PCR) Add-On Test Request 10/03/21 10/03/21 10/03/21 09:30 09:30 09:40 WBC RBC Hgb Hct MCV MCH MCHC RDW Plt Count MPV Immature Gran % Neutrophils % Lymphocytes % Monocytes % Eosinophils % Basophils % Nucleated RBC % Absolute Neutrophils Absolute Lymphocytes Absolute Monocytes Absolute Eosinophils Absolute Basophils D-Dimer 1358 H VBG pH 7.49 H VBG pCO2 31 L VBG pO2 75 VBG HCO3 23 VBG Total CO2 24 VBG O2 Saturation 96 VBG Base Excess 0 VBG Lactate Sodium Potassium Chloride Carbon Dioxide Anion Gap BUN Creatinine Estimated GFR/1.73 m2 Glucose Hemoglobin A1c Calcium Total Bilirubin AST ALT Alkaline Phosphatase Troponin I C-Reactive Protein NT-Pro-B Natriuret Pep 344 H Total Protein Albumin Urine Color Urine Clarity Urine pH Ur Specific Stephen Urine Protein Urine Ketones Urine Blood Urine Nitrite Urine Bilirubin Urine Urobilinogen Ur Leukocyte Esterase Urine RBC Urine WBC Ur Epithelial Cells Urine Crystals Urine Bacteria Urine Mucus Ur Culture Indicated? Urine Glucose COVID-19 Source SARS-CoV-2 (PCR) Influenza Type A (PCR) Influenza Type B (PCR) RSV (PCR) Add-On Test Request 10/03/21 10/03/21 10/03/21 09:40 09:40 09:45 WBC RBC Hgb Hct MCV MCH MCHC RDW Plt Count MPV Immature Gran % Neutrophils % Lymphocytes % Monocytes % Eosinophils % Basophils % Nucleated RBC % Absolute Neutrophils Absolute Lymphocytes Absolute Monocytes Absolute Eosinophils Absolute Basophils D-Dimer VBG pH VBG pCO2 VBG pO2 VBG HCO3 VBG Total CO2 VBG O2 Saturation VBG Base Excess VBG Lactate Sodium Potassium Chloride Carbon Dioxide Anion Gap BUN Creatinine Estimated GFR/1.73 m2 Glucose Hemoglobin A1c Calcium Total Bilirubin AST ALT Alkaline Phosphatase Troponin I C-Reactive Protein 11.45 H NT-Pro-B Natriuret Pep Total Protein Albumin Urine Color Urine Clarity Urine pH Ur Specific Stephen Urine Protein Urine Ketones Urine Blood Urine Nitrite Urine Bilirubin Urine Urobilinogen Ur Leukocyte Esterase Urine RBC Urine WBC Ur Epithelial Cells Urine Crystals Urine Bacteria Urine Mucus Ur Culture Indicated? Urine Glucose COVID-19 Source Nasal/Nares SARS-CoV-2 (PCR) POSITIVE A* Influenza Type A (PCR) Negative Influenza Type B (PCR) Negative RSV (PCR) Negative Add-On Test Request DONE 10/03/21 10/04/21 10/04/21 20:45 06:15 06:15 WBC 4.71 RBC 4.51 Hgb 15.0 Hct 44.8 MCV 99.3 H D MCH 33.3 H MCHC 33.5 RDW 12.8 Plt Count 195 MPV 11.1 H Immature Gran % 0.4 Neutrophils % 77.3 Lymphocytes % 15.3 Monocytes % 7.0 Eosinophils % 0.0 Basophils % 0.0 Nucleated RBC % 0 Absolute Neutrophils 3.64 Absolute Lymphocytes 0.72 L Absolute Monocytes 0.33 Absolute Eosinophils 0.00 Absolute Basophils 0.00 D-Dimer VBG pH VBG pCO2 VBG pO2 VBG HCO3 VBG Total CO2 VBG O2 Saturation VBG Base Excess VBG Lactate Sodium 137 Potassium 4.0 D Chloride 104 Carbon Dioxide 22.5 Anion Gap 10.5 BUN 20 H Creatinine 0.8 Estimated GFR/1.73 m2 >= 60.00 Glucose 143 H Hemoglobin A1c Calcium 8.4 L Total Bilirubin 0.6 AST 75 H ALT 63 Alkaline Phosphatase 85 Troponin I C-Reactive Protein 10.41 H NT-Pro-B Natriuret Pep Total Protein 6.8 Albumin 2.4 L Urine Color Jodie Urine Clarity Clear Urine pH 6.5 Ur Specific Stephen 1.025 Urine Protein 100 H Urine Ketones Negative Urine Blood Negative Urine Nitrite Negative Urine Bilirubin Negative Urine Urobilinogen 4.0 H Ur Leukocyte Esterase Negative Urine RBC Negative Urine WBC 0-2 Ur Epithelial Cells Negative Urine Crystals Negative Urine Bacteria Negative Urine Mucus Moderate Ur Culture Indicated? No Urine Glucose Negative COVID-19 Source SARS-CoV-2 (PCR) Influenza Type A (PCR) Influenza Type B (PCR) RSV (PCR) Add-On Test Request 10/04/21 10/04/21 06:15 06:15 WBC RBC Hgb Hct MCV MCH MCHC RDW Plt Count MPV Immature Gran % Neutrophils % Lymphocytes % Monocytes % Eosinophils % Basophils % Nucleated RBC % Absolute Neutrophils Absolute Lymphocytes Absolute Monocytes Absolute Eosinophils Absolute Basophils D-Dimer 1124 H VBG pH VBG pCO2 VBG pO2 VBG HCO3 VBG Total CO2 VBG O2 Saturation VBG Base Excess VBG Lactate Sodium Potassium Chloride Carbon Dioxide Anion Gap BUN Creatinine Estimated GFR/1.73 m2 Glucose Hemoglobin A1c 6.0 H Calcium Total Bilirubin AST ALT Alkaline Phosphatase Troponin I C-Reactive Protein NT-Pro-B Natriuret Pep Total Protein Albumin Urine Color Urine Clarity Urine pH Ur Specific Stephen Urine Protein Urine Ketones Urine Blood Urine Nitrite Urine Bilirubin Urine Urobilinogen Ur Leukocyte Esterase Urine RBC Urine WBC Ur Epithelial Cells Urine Crystals Urine Bacteria Urine Mucus Ur Culture Indicated? Urine Glucose COVID-19 Source SARS-CoV-2 (PCR) Influenza Type A (PCR) Influenza Type B (PCR) RSV (PCR) Add-On Test Request Review of Systems All systems reviewed & are unremarkable except as noted in HPI and below Time spent with patient Time spent in Critical Care: 40 Time spent in Critical care included: Coordination of care, Chart review, Documenting critically ill care, Time at immediate bedside and Discussing critically ill care with other medical staff
--- NOTE | 2021-10-04 10:06 | PHACLINREV_ITS ---
Pharmacy Admission Review - Admission Clinical Review (Last Reviewed 10/03/21 @ 14:35 by Iftikhar Tse MD) Respiratory failure (Acute) Transaminitis (Acute) Hypokalemia (Acute) Hyponatremia (Acute) Pneumonia due to COVID-19 virus (Acute) No Known Allergies Allergy (Unverified 10/03/21 14:51) Resuscitation Status DNR/DNI Height 5 ft 5 in Weight 66 kg - Renal Dosing Renal Dosing: BUN 20 mg/dL (7-18) H 10/04/21 06:15 Creatinine 0.8 mg/dL (0.70-1.30) 10/04/21 06:15 Medications needing adjustments: Reviewed (SCr: 0.8, eCrCl: 74.00mL/min. All medications dosed appropriately.) - Anticoagulation Anticoagulation: Hgb 15.0 g/dL (13.5-17.5) 10/04/21 06:15 Hct 44.8 % (40.0-50.0) 10/04/21 06:15 Plt Count 195 10^3/uL (130-400) 10/04/21 06:15 Creatinine 0.8 mg/dL (0.70-1.30) 10/04/21 06:15 DVT Prophylaxis: Reviewed Medications: Enoxaparin (Enoxaparin 40mg SC Q24H) - Opiate Usage Evaluate Pain Scale/Pains Meds: Reviewed (Pain scale ratin. No opiates so far this admission.) Scheduled Bowel Reg ordered if on Opiates?: No - Relevant Labs Sodium 137 mmol/L (136-145) 10/04/21 06:15 Potassium 4.0 mmol/L (3.5-5.1) D 10/04/21 06:15 Chloride 104 mmol/L (98-107) 10/04/21 06:15 C-Reactive Protein 10.41 mg/dL (0.0-0.3) H 10/04/21 06:15 Electrolytes, C-Reactive P, ESR: Reviewed (Potassium normalized, 4.0 with oral repletion.) - DM Control DM Control: Glucose 143 mg/dL (74-106) H 10/04/21 06:15 Hemoglobin A1c 6.0 % (<5.7) H 10/04/21 06:15 Insulin Dosing: N/A - Heart Failure/CA Heart Failure/CA: Troponin I < 50 ng/L (<or=60) 10/03/21 09:30 NT-Pro-B Natriuret Pep 344 pg/mL (<300) H 10/03/21 09:30 EF%, CORIE's, B-Blockers, Diuretics: N/A - BP Control BP Control: Blood Pressure 114/58 Blood Pressure 111/61 Blood Pressure 103/61 Blood Pressure 106/67 Blood Pressure 121/71 Blood Pressure 121/71 Blood Pressure 121/71 Blood Pressure 103/55 Blood Pressure 103/55 Blood Pressure 101/60 Blood Pressure 101/60 Blood Pressure 89/51 Blood Pressure 89/51 Blood Pressure 116/59 Blood Pressure 116/59 Blood Pressure 104/58 Blood Pressure 89/54 If elevated: Reviewed (Blood pressure low to normal.) - Qtc Review If Elevated: Reviewed (QTc 463 on admission.) - IV to PO Switch IV Medications: Reviewed - Home Meds Home Med List reviewed: N/A (Per [facility], patient is not under their care. No home meds noted.) - Current meds Current Medication Order Review: Reviewed - Comments Comments/Follow Ups: Continue to monitor labs, vitals and for medication changes.
[2021-10-04 11:21] LABS: Lactate 2.4 mmol/L (0.6-1.4)
--- NOTE | 2021-10-04 12:14 | PGE_ITS ---
Date of Service Date of service: 10/04/21 Time of Service: 12:14 Assessment and Plan Assessment and plan (1) Pneumonia due to COVID-19 virus: Status: Acute Assessment and plan: Unvaccinated. Initiated Remdesivir, dexamethasone, baricitinib, Vit D, C and zinc. CPAP alternating with Hiflow. D dimer 1358. CRP 11.45. Trend inflammatory markers; improving. Avoid volume overload. Improving. When off CPAP is stable on 6L NC. (2) Hyponatremia: Status: Acute Assessment and plan: Likely related to viral infection / COVID. Normalized. (3) Hypokalemia: Status: Acute Assessment and plan: Replaced with oral K. Now normalized. Monitor (4) Alcohol abuse: Status: Chronic Assessment and plan: Monitor for signs/sxs of withdrawal. PRN ativan. If appears to be withdrawing will initiate CIWA protocol. (5) Transaminitis: Status: Acute Assessment and plan: Likely Etoh abuse related. Monitor. Subjective Subjective Patient reports: no new complaints, feels better, bowel movement and afebrile; denies nausea and vomiting Interval history since last seen: No loss of taste/smell. Exam Const General: cooperative and no acute distress Nutritional Appearance: average body habitus Orientation: alert and oriented x3 HENMT Head: normal to inspection, normocephalic and atraumatic Eyes General: appearance normal, both eyes and all related structures Sclera: sclerae normal Resp Effort & Inspection: normal respiratory effort Auscultation: clear to auscultation bilaterally (anterior) Cardio Rate: regular rate Rhythm: regular rhythm Heart Sounds: S1 normal and S2 normal GI Palpation: soft and nontender Skin General skin exam: no rashes or lesions noted and other (multiple tattoos) Neuro General: moves all extremities Speech: speech normal Extrem General: no pedal edema and no calf tenderness Objective Last Vital Signs Temp 36.2 C L 10/04/21 09:00 Pulse 85 10/04/21 09:00 Resp 25 H 10/04/21 09:01 BP 114/58 L 10/04/21 09:00 Pulse Ox 92 10/04/21 09:01 Laboratory Results - last 24 hr 10/03/21 10/03/21 10/03/21 09:40 09:40 20:45 WBC RBC Hgb Hct MCV MCH MCHC RDW Plt Count MPV Immature Gran % Neutrophils % Lymphocytes % Monocytes % Eosinophils % Basophils % Nucleated RBC % Absolute Neutrophils Absolute Lymphocytes Absolute Monocytes Absolute Eosinophils Absolute Basophils D-Dimer VBG Lactate Sodium Potassium Chloride Carbon Dioxide Anion Gap BUN Creatinine Estimated GFR/1.73 m2 Glucose Hemoglobin A1c Calcium Total Bilirubin AST ALT Alkaline Phosphatase C-Reactive Protein 11.45 H Total Protein Albumin Urine Color Jodie Urine Clarity Clear Urine pH 6.5 Ur Specific Adair 1.025 Urine Protein 100 H Urine Ketones Negative Urine Blood Negative Urine Nitrite Negative Urine Bilirubin Negative Urine Urobilinogen 4.0 H Ur Leukocyte Esterase Negative Urine RBC Negative Urine WBC 0-2 Ur Epithelial Cells Negative Urine Crystals Negative Urine Bacteria Negative Urine Mucus Moderate Ur Culture Indicated? No Urine Glucose Negative Add-On Test Request DONE 10/04/21 10/04/21 10/04/21 06:15 06:15 06:15 WBC 4.71 RBC 4.51 Hgb 15.0 Hct 44.8 MCV 99.3 H D MCH 33.3 H MCHC 33.5 RDW 12.8 Plt Count 195 MPV 11.1 H Immature Gran % 0.4 Neutrophils % 77.3 Lymphocytes % 15.3 Monocytes % 7.0 Eosinophils % 0.0 Basophils % 0.0 Nucleated RBC % 0 Absolute Neutrophils 3.64 Absolute Lymphocytes 0.72 L Absolute Monocytes 0.33 Absolute Eosinophils 0.00 Absolute Basophils 0.00 D-Dimer VBG Lactate Sodium 137 Potassium 4.0 D Chloride 104 Carbon Dioxide 22.5 Anion Gap 10.5 BUN 20 H Creatinine 0.8 Estimated GFR/1.73 m2 >= 60.00 Glucose 143 H Hemoglobin A1c 6.0 H Calcium 8.4 L Total Bilirubin 0.6 AST 75 H ALT 63 Alkaline Phosphatase 85 C-Reactive Protein 10.41 H Total Protein 6.8 Albumin 2.4 L Urine Color Urine Clarity Urine pH Ur Specific [place]air Urine Protein Urine Ketones Urine Blood Urine Nitrite Urine Bilirubin Urine Urobilinogen Ur Leukocyte Esterase Urine RBC Urine WBC Ur Epithelial Cells Urine Crystals Urine Bacteria Urine Mucus Ur Culture Indicated? Urine Glucose Add-On Test Request 10/04/21 10/04/21 06:15 11:10 WBC RBC Hgb Hct MCV MCH MCHC RDW Plt Count MPV Immature Gran % Neutrophils % Lymphocytes % Monocytes % Eosinophils % Basophils % Nucleated RBC % Absolute Neutrophils Absolute Lymphocytes Absolute Monocytes Absolute Eosinophils Absolute Basophils D-Dimer 1124 H VBG Lactate 2.4 H* Sodium Potassium Chloride Carbon Dioxide Anion Gap BUN Creatinine Estimated GFR/1.73 m2 Glucose Hemoglobin A1c Calcium Total Bilirubin AST ALT Alkaline Phosphatase C-Reactive Protein Total Protein Albumin Urine Color Urine Clarity Urine pH Ur Specific Adair Urine Protein Urine Ketones Urine Blood Urine Nitrite Urine Bilirubin Urine Urobilinogen Ur Leukocyte Esterase Urine RBC Urine WBC Ur Epithelial Cells Urine Crystals Urine Bacteria Urine Mucus Ur Culture Indicated? Urine Glucose Add-On Test Request
[2021-10-04] MEDS: Enoxaparin 40 MG/0.4 ML SYR SC (13:27)
[2021-10-05] VITALS (15 sets, daily range): BP systolic 107–127; BP diastolic 68–78; PULSE 56–93; RESP 15–34; TEMP 31–36.4; O2SAT 86–98
--- NOTE | 2021-10-05 | DI.RAD_ITS ---
Exam(s) XR PORTABLE CHEST AP EXAM: XR PORTABLE CHEST AP CLINICAL HISTORY: tachypnea, COVID PNA. TECHNIQUE: 2D digital imaging was performed. COMPARISON: CR CHEST 2 VIEWS PA,LAT from 01/20/2011 FINDINGS: Heart size is upper normal. The mediastinum is not widened. Increased markings noted in the lungs, most prominent in the right lower lobe. No associated pleural effusions. IMPRESSION: Infiltrates, more prominent on the right side. Recommend testing for Covid. There are no pleural effusions. DATA REPOSITORY: RADIATION DOSE DELIVERED: All CT scans at this facility use at least one of these dose optimization techniques: automated exposure control; mA and/or kV adjustment per patient size (includes targeted e xams where dose is matched to clinical indication); or iterative reconstruction.
[2021-10-05 07:21] LABS: C-Reactive Protein 4.44 mg/dL (0.0-0.3)
[2021-10-05 07:48] LABS: D-Dimer 1083 ng/mlFEU (<500)
[2021-10-05] MEDS: Cholecalciferol (Vitamin D3) 1,000 UNIT TAB 2000 UNITS PO (09:06)
[2021-10-05] MEDS: Potassium Chloride 20 MEQ TABCR PO (09:07)
[2021-10-05] MEDS: Dexamethasone 4 MG/ML VIAL 6 MG IVP (09:07)
[2021-10-05] MEDS: Zinc Sulfate 220 MG TAB PO (09:07)
[2021-10-05] MEDS: Ascorbic Acid 500 MG TAB 1000 MG PO ×2 (09:07→20:21)
[2021-10-05] MEDS: Normal Saline Flush 10 ML SYR IVP ×2 (09:08→12:30)
[2021-10-05] MEDS: REMDESIVIR 100 MG in Normal Saline 250 ML 250 MG IVPB (09:08)
--- NOTE | 2021-10-05 11:22 | PDOC.CMPRO ---
- If Service Date Differs Date of service: 10/05/21 Time of Service: 11:22 Care Management Progress Note S/O: CM spoke to Bryan over the phone today, as he remains on Covid 19 precautions. He stated that he is feeling good today, and continues to require supplemental O2. He stated that he is independent at baseline, not requiring any support. He does not anticipate that he will need any further support upon discharge. He stated that he has been talking to his s/oMarline multiple times a day. CM will continue to follow. A: Bryan is a 70 year old male admitted to [facility] on 10/03/21 with Covid, Pneumonia. P: Bryan will likely return home when medically cleared. He will be driven home via private vehicle by family. He will follow up with his PCP and discharge plan of care. CM will continue to follow.
[2021-10-05] MEDS: Furosemide 20 MG/2 ML VIAL IVP (12:29)
--- NOTE | 2021-10-05 12:58 | W.PM.PROGNOT ---
Date of Service Date of service: 10/05/21 Time of Service: 12:59 Assessment and Plan Assessment and plan (1) Pneumonia due to COVID-19 virus: Status: Acute Assessment and plan: Unvaccinated. Initiated Remdesivir, dexamethasone, baricitinib, Vit D, C and zinc. CPAP alternating with regular NC Inflammatory markers improving. Now tachypneic but doesn't feel SOA or any different. Lasix 20mg IV now. If no improvement will obtain CXR. CBC and Procal ordered/pending. (2) Hyponatremia: Status: Acute Assessment and plan: Likely related to viral infection / COVID. Normalized. (3) Hypokalemia: Status: Acute Assessment and plan: Replaced with oral K. Now normalized. Monitor (4) Alcohol abuse: Status: Chronic Assessment and plan: Monitor for signs/sxs of withdrawal. PRN ativan. If appears to be withdrawing will initiate CIWA protocol. (5) Transaminitis: Status: Acute Assessment and plan: Likely Etoh abuse related. Much improved. Monitor. Subjective Subjective Patient reports: no new complaints and afebrile; denies nausea, vomiting or shortness of breath Interval history since last seen: Pt noted to be tachypneic late this AM; he denies SOA, CP, cough. Exam Const General: cooperative, no acute distress and other (CPAP in place) Nutritional Appearance: average body habitus Orientation: alert and oriented x3 HENMT Head: normal to inspection, normocephalic and atraumatic Eyes General: appearance normal, both eyes and all related structures Sclera: sclerae normal Resp Effort & Inspection: no grunting, not labored, no respiratory distress, no stridor and tachypneic Auscultation: clear to auscultation bilaterally (anterior) Cardio Rate: regular rate Rhythm: regular rhythm Heart Sounds: S1 normal and S2 normal GI Palpation: soft and nontender Skin General skin exam: no rashes or lesions noted and other (multiple tattoos) Neuro General: moves all extremities Speech: speech normal Extrem General: no pedal edema and no calf tenderness Objective Last Vital Signs Temp 36 C L 10/05/21 11:23 Pulse 64 10/05/21 11:23 Resp 34 H 10/05/21 11:23 BP 107/71 10/05/21 11:23 Pulse Ox 94 10/05/21 11:23 Laboratory Results - last 24 hr 10/05/21 10/05/21 07:05 07:05 D-Dimer 1083 H C-Reactive Protein 4.44 H
[2021-10-05 13:38] LABS: Abs Immature Grans 0.06 10^3/uL (0.0-0.06); Absolute Basophil Count 0.01 10^3/uL (0.0-0.2); Absolute Lymphocyte Count 0.54 10^3/uL (1.2-3.4); Absolute Monocyte Count 0.34 10^3/uL (0.1-0.8); Absolute Neutrophil Count 7.63 10^3/uL (1.2-6.7); Basophils % 0.1; HCT 44.8 % (40.0-50.0); HGB 15.2 g/dL (13.5-17.5); Immature Grans % 0.7; Lymphocytes % 6.3; MCHC 33.9 % (32.0-36.0); MCV 97.4 fL (80-95); MPV 10.9 fL (8.0-11.0); Neutrophils % 88.9; Nucleated RBC 0 %; Platelet Count 260 10^3/uL (130-400); RDW 12.7 % (11.8-14.1); RDW-SD 45.3 fL; WBC 8.58 10^3/uL (4.4-10.8)
[2021-10-05] MEDS: Enoxaparin 40 MG/0.4 ML SYR SC (14:14)
[2021-10-05 14:29] LABS: Procalcitonin 0.2 ng/mL
[2021-10-05] MEDS: LORazepam 0.5 MG TAB PO (17:16)
[2021-10-06] VITALS (11 sets, daily range): BP systolic 103; BP diastolic 67; PULSE 55–78; RESP 20–30; TEMP 32–36.4; O2SAT 84–93
[2021-10-06 07:20] LABS: Abs Immature Grans 0.07 10^3/uL (0.0-0.06); Absolute Basophil Count 0.01 10^3/uL (0.0-0.2); Absolute Lymphocyte Count 0.78 10^3/uL (1.2-3.4); Absolute Monocyte Count 0.37 10^3/uL (0.1-0.8); Absolute Neutrophil Count 7.83 10^3/uL (1.2-6.7); Basophils % 0.1; HCT 46.1 % (40.0-50.0); HGB 15.9 g/dL (13.5-17.5); Immature Grans % 0.8; Lymphocytes % 8.6; MCH 33.4 pg (27.0-33.0); MCHC 34.5 % (32.0-36.0); MCV 96.8 fL (80-95); MPV 10.9 fL (8.0-11.0); Monocytes % 4.1; Neutrophils % 86.4; Nucleated RBC 0 %; Platelet Count 279 10^3/uL (130-400); RBC 4.76 10^6/uL (4.36-5.78); RDW 12.7 % (11.8-14.1); RDW-SD 46.2 fL; WBC 9.06 10^3/uL (4.4-10.8)
[2021-10-06 07:28] LABS: BUN 29 mg/dL (7-18); C-Reactive Protein 3.04 mg/dL (0.0-0.3); CREATININE 0.9 mg/dL (0.70-1.30); Calcium 8.8 mg/dL (8.5-10.1); Chloride 104 mmol/L (98-107); Glucose 105 mg/dL (74-106); Potassium 3.6 mmol/L (3.5-5.1); Sodium 139 mmol/L (136-145)
[2021-10-06] MEDS: Ascorbic Acid 500 MG TAB 1000 MG PO (07:51)
[2021-10-06] MEDS: Zinc Sulfate 220 MG TAB PO (07:51)
[2021-10-06] MEDS: Cholecalciferol (Vitamin D3) 1,000 UNIT TAB 2000 UNITS PO (07:51)
[2021-10-06] MEDS: Normal Saline Flush 10 ML SYR IVP (07:52)
[2021-10-06 07:53] LABS: D-Dimer 937 ng/mlFEU (<500)
--- NOTE | 2021-10-06 08:01 | NUR.NOTE ---
Nursing Note: Patient stated I won't be here for very long today. When asked what he meant he stated I told my niece I would give it three days, and I have. I feel fine. Patient educated that if the provider doesn't think he is okay to be discharged that he would be leaving against medical advice. Patient stated I know. Charge nurse made aware.
--- NOTE | 2021-10-06 09:38 | RESPIRATORY ---
0900 Oxygen temporarily discontinued to assess pt before leaving AMA. Pt aware that O2 level is dangerously low at rest. Pt refused to ambulate at this time. RT made pt aware that ANY exertion, including talking, will further reduce his SpO2 and could be life-threatening. On room air at rest, pt SpO2 remains between 82-86%. Pt states his breathing is comfortable at the moment. RT advised MD, RN, and staff monitoring pt of situation.
--- NOTE | 2021-10-06 14:14 | PDOC.CMPRO ---
- If Service Date Differs Date of service: 10/06/21 Time of Service: 14:14 Care Management Progress Note WENDY was notified that Bryan left against medical advice, despite his O2 saturation dropping below 90% at rest. WENDY spoke to Bryan yesterday regarding needs in the community, and he had no concerns at that time. WENDY was unable to reach Bryan prior to him leaving the facility today.
--- NOTE | 2021-10-06 14:37 | W.PM.DS.N ---
Date of service: 10/06/21 Time of Service: 14:37 DS: Diagnosis Discharge Diagnosis (1) Pneumonia due to COVID-19 virus: Status: Acute (2) Hyponatremia: Status: Acute (3) Hypokalemia: Status: Acute (4) Alcohol abuse: Status: Chronic (5) Transaminitis: Status: Acute Discharge Plan Disposition Patient Disposition: AGAINST MEDICAL ADVICE Condition: Critical Discharge Details Reason For Visit: Covid,Pneumonia Admit Date/Time: 10/03/21 12:12 Admit Provider: Iftikhar Tse Attending Provider: Iftikhar Tse Primary Care Provider: Kierra Lopez V Hospital Course Hospital Course: This is a 70 yo male with no known PMH though he doesn't see a doctor or other provider.? On no home medications.? He tested positive for COVID-19 2 days prior to presentation.? C/O shortness of air.? No loss of taste or sense of smell.? In the ED Covid-19 confirmed as positive.? WBC count normal.? Na 134.? K 3.3.? Creatinine 1.1.? Glucose 161.? AST 127.? ALT 88. NTProBNP 344 CT chest results:? 1. No evidence of pulmonary embolism, thoracic aortic dissection or aneurysm. 2. Multifocal ground-glass opacities consistent with pneumonia.? The findings would be consistent with a COVID-19 infection. Placed on CPAP in ED; tolerated well. ? He continued to use CPAP at night and then required 6L NC initially. He was placed on highflow system to receive humidified air. The day prior to discharge he developed tachypnea but stated he felt not changes and felt fine. A dose of ativan was given and his tachypnea did resolve. On the day he left AMA he stated he had agreed to stay only 3 days (this was an agreement he stated he had with his niece). He then proceeded to call her to pick him up. There is suspicion that he might be starting to have a craving for Etoh. He declined treatment with Ativan. On room air while waiting for his niece to arrive his O2 saturations were in the low 80's. It was explained to him that he had a significant need for supplemental O2 and he would likely develop respiratory arrest, possibly cardiac arrest if left untreated. He still declined to stay. His situation was also described to his niece that took him home. He knows he can always return to the ED. Home Meds and New Rx's Prescriptions: No Action No Known Home Meds 0RF Discharge Data Discharge Date/Time-TO BE ENTERED AT DEPARTURE: 10/06/21 10:07 DS: Summary Time Spent with Patient providing and/or coordinating discharge services: Greater than 30 minutes Status at Discharge Functional status at discharge: independent ambulation Overall status at discharge: patient is not back to baseline Mental Status: mental status grossly normal Speech and Movement: speech and movement normal Mood: congruent mood Affect: normal affect Exam Const General: cooperative, no acute distress and other (CPAP in place) Nutritional Appearance: average body habitus Orientation: alert and oriented x3 HENMT Head: normal to inspection, normocephalic and atraumatic Eyes General: appearance normal, both eyes and all related structures Sclera: sclerae normal Resp Effort & Inspection: normal respiratory effort, no grunting, not labored, no respiratory distress, no stridor and tachypneic Auscultation: clear to auscultation bilaterally (anterior) Cardio Rate: regular rate Rhythm: regular rhythm Heart Sounds: S1 normal and S2 normal GI Palpation: soft and nontender Skin General skin exam: no rashes or lesions noted and other (multiple tattoos) Neuro General: moves all extremities Speech: speech normal Extrem General: no pedal edema and no calf tenderness Psych Mental Status: mental status grossly normal Speech and Movement: speech and movement normal Mood: congruent mood Affect: normal affect DS: Data Vitals/I&O Vitals and I&O: Vital Signs Temperature 36.4 C L 10/06/21 07:30 Temperature Source Tympanic 10/06/21 07:30 Pulse 78 10/06/21 07:30 Pulse Rhythm Regular 10/06/21 07:45 Pulse 61 10/04/21 09:01 Respiratory Rate 30 H 10/06/21 09:05 Respiratory Effort 10/06/21 09:05 Respiratory Depth Shallow 10/06/21 09:05 Respiratory Pattern Normal 10/06/21 09:05 Blood Pressure 103/67 10/06/21 07:30 Blood Pressure Mean 72 10/04/21 09:00 Blood Pressure Position Left Lateral 10/04/21 09:00 Pulse Oximetry 84 L 10/06/21 09:31 Oxygen Delivery Method Room Air 10/06/21 09:31 Oxygen Flow Rate 0 10/06/21 09:31 Fraction of Inspired Oxygen (FIO2) 21 10/06/21 09:31 Pain Level 0 10/06/21 07:30 Comment 10/06/21 08:54 Intake & Output 10/05/21 10/06/21 10/06/21 23:59 11:59 23:59 Intake Total 240 / 850 Output Total 1575 / 1575 200 / 200 Balance -1335 / -725 -200 / -200 Intake: Oral 240 / 600 Output: Urine 1575 / 1575 200 / 200 Other: Urine Color Yellow Dark Jodie Urine Appearance Clear Urine Odor None Normal Comment voided in the toilet unable to assess Voiding Methods Urinal Urinal Data Completed and Pending Labs on day of discharge: Labs from last 24 hours 10/06/21 10/06/21 10/06/21 07:05 07:05 07:05 WBC 9.06 RBC 4.76 Hgb 15.9 Hct 46.1 MCV 96.8 H MCH 33.4 H MCHC 34.5 RDW 12.7 Plt Count 279 MPV 10.9 Immature Gran % 0.8 Neutrophils % 86.4 Lymphocytes % 8.6 Monocytes % 4.1 Eosinophils % 0.0 Basophils % 0.1 Nucleated RBC % 0 Absolute Neutrophils 7.83 H Absolute Lymphocytes 0.78 L Absolute Monocytes 0.37 Absolute Eosinophils 0.00 Absolute Basophils 0.01 D-Dimer 937 H Sodium 139 Potassium 3.6 Chloride 104 Carbon Dioxide 23.0 Anion Gap 12.0 H BUN 29 H D Creatinine 0.9 Estimated GFR/1.73 m2 >= 60.00 Glucose 105 Calcium 8.8 C-Reactive Protein 3.04 H Preliminary micro results at discharge 10/03/21 09:30 Blood Culture - Preliminary Blood NO GROWTH 72 HOURS 10/03/21 09:40 Blood Culture - Preliminary Blood NO GROWTH 72 HOURS PFSH All Active Problems Lactic acidosis (Acute) Respiratory failure with hypoxia (Acute) Transaminitis (Acute) Alcohol abuse (Chronic) Hypokalemia (Acute) Hyponatremia (Acute) Pneumonia due to COVID-19 virus (Acute) Medical History Respiratory failure Social History Smoking/Tobacco Use Status: Never Smoking risk assessment performed?: Yes Alcohol Intake: former Drug use: Never Substance use type: does not use Do you feel safe at home: Yes Do you feel safe in your relationship?: Yes
== END 2021-10-06 10:07 | disposition left against medical advice (07) | DRG 177 ==
LOC: ER 12:38 → ICU 13:23 → MS 10-04 14:21
PROVIDERS: Student in an Organized Health Care Education/Training Program; Admitting Provider Family Medicine; Emergency Provider Physician Assistant; PCP Family Medicine; Visit Provider Family Medicine
DX: U07.1 COVID-19 (principal); J12.82 Pneumonia due to coronavirus disease 2019; J96.01 Acute respiratory failure with hypoxia; E87.1 Hypo-osmolality and hyponatremia; E87.2 Acidosis; E87.6 Hypokalemia; F10.10 Alcohol abuse, uncomplicated; R74.01 Elevation of levels of liver transaminase levels; Z66 Do not resuscitate
CPT/HCPCS: 36415; 71275; 80048; 80053; 82805; 84145; 87040; 87637; 93005; 94640; 96361; 96365; 96367; 96375; 99291; J1650; 71045; 81003; 81015; 83036; 83605; 83880; 84484; 85025; 85379; 86140; 93010; 94660; 94760; 99223; 99233; 99238; J0248; J1100; J1941; J3490; J7620

== ENCOUNTER 2021-10-07 09:40 | Inpatient (IN) | payer MEDICARE, SELFPAY ==
[2021-10-07] VITALS (40 sets, daily range): BP systolic 115–137; BP diastolic 50–81; PULSE 61–108; RESP 20–41; TEMP 35.5–36.6; O2SAT 83–98
--- NOTE | 2021-10-07 09:45 | RT.EKG_ITS ---
APPROVED REPORT Exam: Resting ECG Reason for Exam: shortness of breath Patient Location: E HR:85 bpm ECG Measurements Heart Rate 85 AXIS AL 116 P 69 QRSd 78 QRS 32 QT 384 T 61 QTc 458 Conclusion Sinus rhythm...normal P axis, V-rate 60- 99. Sinus. Normal axis. No STEMI. I have reviewed and interpreted ECG and agree with software generated interpretation.
--- NOTE | 2021-10-07 09:45 | DI.RAD_ITS ---
Exam(s) XR PORTABLE CHEST AP EXAM: XR PORTABLE CHEST AP CLINICAL HISTORY: cough, sob, r/o acute disease TECHNIQUE: 2D digital imaging was performed of the chest. One image was obtained. An AP view was ob tained. COMPARISON: CR XR PORTABLE CHEST AP from 10/05/2021 FINDINGS: MEDIASTINUM: Normal. HEART: Normal. PULMONARY VASCULATURE: Normal. LUNGS: Emphysematous changes are seen in the lungs. There are increased opacities predominantly in t he lung bases bilaterally. There is slight progression since the prior examination. PLEURAL SPACE: No pleural effusion or pneumothorax. BONE:Within normal limits for the patient's age. OTHER FINDINGS:Normal. IMPRESSION: Bilateral multifocal opacities. Findings are suspicious for pneumonia. COVID-19 should be considere d. DATA REPOSITORY: RADIATION DOSE DELIVERED:
--- NOTE | 2021-10-07 10:29 | ED.GENADUL_ITS ---
Discharge Plan Disposition Patient Disposition: [facility] INPATIENT Condition: Serious Discharge Details Clinical Impression: Pneumonia due to COVID-19 virus, Hypoxia, Requires supplemental oxygen Admit Date/Time: 10/07/21 12:32 Admit Provider: Omayra Gould Attending Provider: Omayra Gould Primary Care Provider: Kierra Lopez V ED Provider: Jane Issa Medical Decision Making 70-year-old male with a history of alcohol abuse with no reported heavy recent alcohol use and states he has not been drinking heavily for quite some time, diagnosed with Covid pneumonia this week and left AMA from the floor yesterday presents for persistent shortness of breath that is worse with exertion. He also reports neck pain with he feels is due to coughing and attempting to express phlegm. Oxygen saturation 92% on 15 L in route. Hospitalist notes from yesterday note that patient had an oxygen saturation in the 80s on room air yesterday prior to leaving AMA. He is 90% on 6 L urology. He does not appear to be in any acute distress. He has scattered wheezing and rhonchi throughout. He has no upper extremity focal deficits and is otherwise neurovascular intact. We will repeat screening labs, chest x-ray and obtain CT cervical spine imaging. Will give Solu-Medrol, duo nebs, fluids and Toradol for his neck pain. Labs and imaging reviewed. Hemoglobin 18 which may be reactive secondary to dehydration. Lactate 2.5 which is improved from 3.8 earlier this week. Elevated liver enzymes and T bili but improved compared to previous. Troponin negative. Procalcitonin elevated 2.5 compared to recent 0.2. Chest x-ray notes slight progression of his Covid pneumonia. No acute findings on CT cervical spine. Oxygen saturation has remained high 80s to low 90s on 6 L nasal cannula. Will place patient back on high flow nasal cannula as there is worsening of pneumonia. Patient is agreeable to admission. Case discussed with hospitalist who accepts patient for admission. Would like doxycycline and ceftriaxone. Medical Records Medical records reviewed: Yes I reviewed the patient's medical records. Imaging Data Radiologic Study: Radiologist's impression: CT Cervical Spine Without Contrast Exam date and time: 10/07/2021 10:37 AM Age: 70 years old Clinical indication: Neck pain TECHNIQUE: Imaging protocol: Computed tomography images of the cervical spine without contrast. COMPARISON: CT CHEST PE CTA 10/03/2021 10:52 AM FINDINGS: Bones/joints: There is no evidence of acute fracture.There is no evidence of malalignment or dislocation. Discs/Spinal canal/Neural foramina: No significant disc protrusion. No severe spinal canal stenosis. No significant neural foraminal narrowing. Mastoid air cells: Opacities in the mastoid air cells may represent acute or chronic mastoiditis. Lungs: Paraseptal emphysematous changes. ?14 x 8 mm spiculated density in the right apex. Series 4, image 65. May represent atelectasis or nodule.. Soft tissues: Unremarkable. IMPRESSION: 1. There is no evidence of acute fracture.There is no evidence of malalignment or dislocation. 2. 14 x 8 mm spiculated density in the right apex. Series 4, image 65. May represent atelectasis or nodule. XR Chest Exam date and time: 10/07/2021 9:57 AM Age: 70 years old Clinical indication: Shortness of breath TECHNIQUE: Imaging protocol: XR of the chest. Views: 1 view. COMPARISON: CR XR PORTABLE CHEST AP 10/05/2021 3:34 PM FINDINGS: Lungs: Patchy bilateral opacities may represent multifocal pneumonia including COVID-19. Emphysematous changes in the right upper lobe Pleural spaces: Unremarkable. No pleural effusion. No pneumothorax. Heart/Mediastinum: Unremarkable. No cardiomegaly. Bones/joints: Unremarkable. IMPRESSION: Patchy bilateral opacities may represent multifocal pneumonia including COVID-19. Lab Data Lab results reviewed: Yes I reviewed the patient's lab results. Labs: 10/07/21 12:05 Blood Blood Culture - Pending 10/07/21 11:25 Blood Blood Culture - Pending Laboratory Tests Range/Units 10/07/21 10/07/21 10/07/21 11:25 11:25 11:25 WBC (4.4-10.8) 10^3/uL 9.82 RBC (4.36-5.78) 10^6/uL 5.39 Hgb (13.5-17.5) g/dL 18.0 H D Hct (40.0-50.0) % 52.2 H MCV (80-95) fL 96.8 H MCH (27.0-33.0) pg 33.4 H MCHC (32.0-36.0) % 34.5 RDW (11.8-14.1) % 12.8 Plt Count (130-400) 10^3/uL 252 MPV (8.0-11.0) fL 10.9 Immature Gran % 0.8 Neutrophils % 89.3 Lymphocytes % 5.2 Monocytes % 4.4 Eosinophils % 0.1 Basophils % 0.2 Nucleated RBC % % 0 Absolute Neutrophils (1.2-6.7) 10^3/uL 8.77 H Absolute Lymphocytes (1.2-3.4) 10^3/uL 0.51 L Absolute Monocytes (0.1-0.8) 10^3/uL 0.43 Absolute Eosinophils (0.0-0.7) 10^3/uL 0.01 Absolute Basophils (0.0-0.2) 10^3/uL 0.02 RBC Morphology Normal VBG Lactate (0.6-1.4) mmol/L 2.5 H* Sodium (136-145) mmol/L 136 Potassium (3.5-5.1) mmol/L 4.0 Chloride (98-107) mmol/L 101 Carbon Dioxide (21.0-32.0) mmol/L 25.4 Anion Gap (3-11) mmol/L 9.6 BUN (7-18) mg/dL 23 H Creatinine (0.70-1.30) mg/dL 1.0 Estimated GFR/1.73 m2 (mL/min/1.73m2) >= 60.00 Glucose (74-106) mg/dL 139 H Calcium (8.5-10.1) mg/dL 9.3 Magnesium (1.8-2.4) mg/dL 2.5 H Total Bilirubin (0.2-1.0) mg/dL 1.6 H AST (15-37) U/L 89 H ALT (16-63) U/L 75 H Alkaline Phosphatase (46-116) U/L 115 Troponin I (<or=60) ng/L < 50 Total Protein (6.4-8.2) g/dL 8.4 H Albumin (3.4-5.0) g/dL 3.2 L Procalcitonin ng/mL 0.5 ECG Data Interpretation: Rate of 85, sinus, no acute ST elevation or depression. [place] 116. QTc 458. HPI General Date/Time Provider Initiated Documentation: 10/07/21 10:34 . Limitations to Documentation: no limitations . Information obtained by: patient . HPI Narrative: Patient is a 70 -year-old male with a history of alcohol abuse reportedly with no recent heavy use admitted here recently for Covid pneumonia and left AMA yesterday who presents for persistent shortness of breath that is worse with ambulation. Patient states he lives at home with his girlfriend. He states he left the hospital AMA yesterday but states the decision was stupid . He states he feels he does need to stay in the hospital now and agreeable. He states his shortness of breath is bothering him the most. He has been coughing up green sputum. He has been eating and drinking and denies any known fever or vomiting. He denies any chest pain. He also reports right-sided neck pain for the past week that he states he feels is due to coughing and trying to bring up phlegm. He denies any pain, numbness or tingling in his upper extremities. Related Data Home Medications Medication Instructions Recorded Confirmed Unknown [No Known Home Meds] 10/03/21 10/07/21 Allergies Allergy/AdvReac Type Severity Reaction Status Date / Time No Known Allergies Allergy Unverified 10/07/21 09:50 General Stated Complaint: RespSymp ADA: 3 Review of Systems All systems reviewed & are unremarkable except as noted in HPI and below Constitutional Constitutional: Reports as per HPI, Denies chills, Denies excessive sweating, Reports fatigue and Denies fever(s) Eyes Eyes: Denies blurry vision ENT Ears, Nose, Mouth, and Throat: Denies dizziness, Reports neck pain, Denies sore throat and Denies throat swelling Cardiovascular Cardiovascular: Denies chest pain, Reports dyspnea and Reports dyspnea on exertion Respiratory Respiratory: Reports cough, Reports dyspnea and Reports dyspnea on exertion Gastrointestinal Gastrointestinal: Denies abdominal pain, Denies diarrhea and Denies vomiting Genitourinary Genitourinary: Denies hematuria and Denies dysuria Musculoskeletal Musculoskeletal: Denies back pain, Reports neck pain and Denies numbness Integumentary/Breasts Skin/Breast: Denies lesions and Denies rash Neurologic Neurologic: Denies behavioral changes, Denies confusion, Denies dizziness, Den ies localized weakness and Denies numbness Psychiatric Psychiatric: Denies behavioral changes, Denies confusion and Denies depression Endocrine Endocrine: Denies excessive sweating and Reports fatigue Hematologic/Lymphatic Hematologic/Lymphatic: Denies easy bruising and Denies lymphadenopathy Allergic/Immunologic Allergic/Immunologic: Denies throat swelling PFSH All Active Problems (Updated 10/07/21 @ 12:05 by Jane Issa DO) Hypoxia (Acute) Requires supplemental oxygen (Acute) Respiratory failure with hypoxia (Acute) Transaminitis (Acute) Hyponatremia (Acute) Pneumonia due to COVID-19 virus (Acute) Medical History Alcohol abuse no reported drink for 2 years Social History Smoking/Tobacco Use Status: Never Smoking risk assessment performed?: Yes Alcohol Intake: former Drug use: Never Substance use type: does not use Do you feel safe at home: Yes Do you feel safe in your relationship?: Yes Exam Const General: cooperative and ill appearing chronically Nutritional Appearance: thin Orientation: alert, awake and oriented x3 HENMT Head: normal to inspection Ears: hearing grossly normal bilaterally and external ears normal General nose exam: external nose normal Face and sinus: normal facial exam Mouth: mucous membranes dry Throat: posterior oropharynx normal Eyes General: appearance normal, both eyes and all related structures Eyelids: eyelids normal Pupils: PERRL EOM: EOM intact bilaterally Neck Neck: normal visual inspection Lymphatic: no lymphadenopathy noted Chest Chest: normal inspection of the chest Resp Effort & Inspection: normal respiratory effort and able to speak in complete sentences Auscultation: rhonchi upper bilaterally and lower bilaterally and wheezes scattered wheezes Cardio Rate: regular rate Rhythm: regular rhythm GI Inspection: normal to inspection Palpation: soft, not firm, no guarding, no hepatosplenomegaly, no masses and nontender Auscultation: normal bowel sounds Back/Spine/Pelvis Back: no CVA tenderness Cervical Spine: cervical muscular tenderness (bilateral, worse on right side) and No cervical spinal tenderness Skin General skin exam: no rashes or lesions noted Neuro General: patient alert and patient awake Cognition: normal cognition Speech: speech normal Gait: normal gait Motor: muscle tone normal throughout and strength 5/5 throughout Sensory Exam: no sensory deficits noted Other: Muscle strength 5/5 bilateral upper extremities. Bilateral radial pulses intact. Extrem General: normal to inspection, full ROM and capillary refill normal Psych Appearance: grossly normal Mental Status: mental status grossly normal Speech and Movement: speech and movement normal Affect: normal affect Thought Process: normal Course Vital Signs Vital signs: Vital Signs Temperature 97.9 F 10/07/21 09:45 Pulse 91 H 10/07/21 09:45 Respiratory Rate 20 10/07/21 09:45 Blood Pressure 119/74 10/07/21 09:45 Pulse Oximetry 98 10/07/21 09:45 Temperature 97.9 F 10/07/21 09:45 Temperature Source Temporal Artery Scan 10/07/21 09:45 Pulse 91 H 10/07/21 09:45 Respiratory Rate 20 10/07/21 09:45 Respiratory Effort Incrsd Work of Breathing 10/07/21 09:51 Respiratory Depth Normal 10/07/21 09:51 Blood Pressure 119/74 10/07/21 09:45 Blood Pressure Position Sitting 10/07/21 09:45 Pulse Oximetry 89 L 10/07/21 09:55 Oxygen Delivery Method Nasal Cannula 10/07/21 09:55 Oxygen Flow Rate 5 10/07/21 09:55 Pain Level 0 10/07/21 09:45 Lab/Test Results Lab/Test Results: 10/07/21 10:27 Blood Blood Culture - Pending 10/07/21 10:27 Blood Blood Culture - Pending
--- NOTE | 2021-10-07 10:30 | DI.CT_ITS ---
Exam(s) CT CERVICAL SPINE WO EXAM: CT CERVICAL SPINE WO CLINICAL HISTORY: neck pain, r/o acute disease. TECHNIQUE: Imaging Protocol: Axial computed tomography images with coronal and sagittal reformatted images were created and reviewed COMPARISON: CT CHEST FOR PULMONARY EMBOLUS from 01/20/[address] CHEST PE CTA from 10/03/2021 FINDINGS: Bones: No fracture or dislocations are seen. The alignment of the cervical spine is normal including the craniocervical junction and cervicothoracic junction. Significant central spinal canal or neural foraminal stenosis. Emphysematous changes are seen in the lung apices. There is some fluid in the m astoid air cells which may represent mastoiditis. Soft Tissues: The soft tissues of the neck are unremarkable. There is an area of spiculation seen in the right lung apex. This has a similar appearance to the CT scan of the chest from 01/20/2011 and li staci reflects scarring. IMPRESSION: 1. No acute fracture or subluxation in the cervical spine. 2. Emphysematous changes in the lung apices. Area of spiculation in the right lung apex which has a similar appearance dating back to 2010 and appears to reflect scarring. RADIATION DOSE DELIVERED: 442.1mGy.cm Total DLP 442.1mGy.cm Total DLP DATA REPOSITORY: All CT scans at this facility are submitted to the National Radiology Data Registry (NRDR) Dose Index Registry (DIR) with the [employer] ([employer]). RADIATION OPTIMIZATION: All CT scans at this facility use at least one of these dose optimization te chniques: automated exposure control; mA and/or kV adjustment per patient size (includes targeted exa ms where dose is matched to clinical indication); or iterative reconstruction.
--- NOTE | 2021-10-07 11:10 | DI.VRAD_ITS ---
PROCEDURE INFORMATION: Exam: XR Chest Exam date and time: 10/07/2021 9:57 AM Age: 70 years old Clinical indication: Shortness of breath TECHNIQUE: Imaging protocol: XR of the chest. Views: 1 view. COMPARISON: CR XR PORTABLE CHEST AP 10/05/2021 3:34 PM FINDINGS: Lungs: Patchy bilateral opacities may represent multifocal pneumonia including COVID-19. Emphysematous changes in the right upper lobe Pleural spaces: Unremarkable. No pleural effusion. No pneumothorax. Heart/Mediastinum: Unremarkable. No cardiomegaly. Bones/joints: Unremarkable. IMPRESSION: Patchy bilateral opacities may represent multifocal pneumonia including COVID-19. Dictated and Authenticated by: Adelina Dahl MD. Ordering:SUMANTH Lara MD
--- NOTE | 2021-10-07 11:13 | DI.VRAD_ITS ---
PROCEDURE INFORMATION: Exam: CT Cervical Spine Without Contrast Exam date and time: 10/07/2021 10:37 AM Age: 70 years old Clinical indication: Neck pain TECHNIQUE: Imaging protocol: Computed tomography images of the cervical spine without contrast. COMPARISON: CT CHEST PE CTA 10/03/2021 10:52 AM FINDINGS: Bones/joints: There is no evidence of acute fracture.There is no evidence of malalignment or dislocation. Discs/Spinal canal/Neural foramina: No significant disc protrusion. No severe spinal canal stenosis. No significant neural foraminal narrowing. Mastoid air cells: Opacities in the mastoid air cells may represent acute or chronic mastoiditis. Lungs: Paraseptal emphysematous changes. 14 x 8 mm spiculated density in the right apex. Series 4, image 65. May represent atelectasis or nodule.. Soft tissues: Unremarkable. IMPRESSION: 1. There is no evidence of acute fracture.There is no evidence of malalignment or dislocation. 2. 14 x 8 mm spiculated density in the right apex. Series 4, image 65. May represent atelectasis or nodule.. Dictated and Authenticated by: Adelina Dahl MD. Ordering:SUMANTH Lara MD
[2021-10-07] MEDS: Ketorolac 30 MG/ML VIAL IVP (11:20)
[2021-10-07] MEDS: methylPREDNISolone SUCC 125 MG VIAL IVP (11:20)
[2021-10-07] MEDS: Albuterol/Ipratropium 3 ML UPD VIAL UPD (11:31)
[2021-10-07] MEDS: Normal Saline 500 ML IV (11:31)
[2021-10-07 11:37] LABS: Lactate 2.5 mmol/L (0.6-1.4)
[2021-10-07 11:38] LABS: Abs Immature Grans 0.08 10^3/uL (0.0-0.06); Absolute Basophil Count 0.02 10^3/uL (0.0-0.2); Absolute Eosinophil Count 0.01 10^3/uL (0.0-0.7); Absolute Lymphocyte Count 0.51 10^3/uL (1.2-3.4); Absolute Monocyte Count 0.43 10^3/uL (0.1-0.8); Absolute Neutrophil Count 8.77 10^3/uL (1.2-6.7); Basophils % 0.2; Eosinophils % 0.1; HCT 52.2 % (40.0-50.0); Immature Grans % 0.8; Lymphocytes % 5.2; MCH 33.4 pg (27.0-33.0); MCHC 34.5 % (32.0-36.0); MCV 96.8 fL (80-95); MPV 10.9 fL (8.0-11.0); Monocytes % 4.4; Neutrophils % 89.3; Nucleated RBC 0 %; Platelet Count 252 10^3/uL (130-400); RBC 5.39 10^6/uL (4.36-5.78); RDW 12.8 % (11.8-14.1); RDW-SD 45.9 fL; WBC 9.82 10^3/uL (4.4-10.8)
[2021-10-07 11:55] LABS: ALT 75 U/L (16-63); AST 89 U/L (15-37); Albumin 3.2 g/dL (3.4-5.0); Alkaline Phosphatase 115 U/L (46-116); Anion Gap 9.6 mmol/L (3-11); BUN 23 mg/dL (7-18); Bilirubin, Total 1.6 mg/dL (0.2-1.0); CO2 25.4 mmol/L (21.0-32.0); Calcium 9.3 mg/dL (8.5-10.1); Chloride 101 mmol/L (98-107); Glucose 139 mg/dL (74-106); Magnesium 2.5 mg/dL (1.8-2.4); Sodium 136 mmol/L (136-145); Total Protein 8.4 g/dL (6.4-8.2); Troponin I < 50 ng/L (<or=60)
[2021-10-07 12:07] LABS: Diff Comment Diff Reviewed; Procalcitonin 0.5 ng/mL; RBC Morphology Normal
[2021-10-07] MEDS: DOXYCYCLINE 100 MG in Normal Saline 100 ML IVPB ×2 (12:58→21:13)
[2021-10-07] MEDS: cefTRIAXone 1 GM/50 ML BAG IVPB (12:58)
[2021-10-07] MEDS: Normal Saline Flush 10 ML SYR IVP ×2 (14:07→15:32)
[2021-10-07] MEDS: REMDESIVIR 100 MG in Normal Saline 250 ML 250 MG IVPB (14:07)
[2021-10-07] MEDS: Enoxaparin 60 MG/0.6 ML SYR SC (14:08)
[2021-10-07] MEDS: Normal Saline 500 ML 30 ML IV (14:09)
--- NOTE | 2021-10-07 15:07 | INITIAL_ITS ---
- If Service Date Differs Date of service: 10/07/21 Time of Service: 15:07 Care Management Initial Assess REASON FOR HOSPITALIZATION:: Covid Pneumonia PAST MEDICAL HISTORY/PAST SURGICAL HISTORY:: Transaminitis (Acute). Alcohol abuse (Chronic). Hypokalemia (Acute). Hyponatremia (Acute). Pneumonia due to COVID-19 virus (Acute) PREVIOUS FUNCTIONAL STATUS/SOCIAL/FAMILY SUPPORTS:: Bryan lives in [facility] with his s/o, Marline. He drives and is independent at baseline. He shares that his Niece Jenna Mckinley is supportive. CURRENT FUNCTIONAL STATUS:: CM spoke with Bryan via phone due to covid rest rictions. He was pleasant and easily engaged in conversation. He is feeling much better since coming to the hospital yesterday. He reports that he is tolerating his CPAP and proning as much as he can. He shares with CM that his Birthday is in 3 days, and he hopes to be discharged by then but agrees to stay until he is medically ready for discharge. ADVANCE DIRECTIVES:: None on file at [facility], CM provided pt with forms. Has patient been provided with info about the portal/API?: Yes Did the patient sign up for the portal?: No CODE STATUS:: DNR/DNI INSURANCE COVERAGE / FINANCIAL ISSUES:: Medicare CURRENT HOME/COMMUNITY SERVICES/EQUIPMENT:: Uses a [facility] PRIMARY CARE PHYSICIAN:: Kierra Lopez POTENTIAL DISCHARGE NEEDS:: Follow up appointments. [place] O2 if indicated. PATIENT/FAMILY EDUCATION NEEDS:: Review discharge instructions and limitations, discussion of self care needs including ask me three. TRANSPORTATION:: Via private vehicle with Francisco Mckinley. PLAN:: Bryan will likely return home with no new services when medically ready. He will be driven home via private vehicle by family. He will follow up with his PCP and discharge plan of care. CM will continue to support discharge planning needs including need for new home O2, if indicated. Readmission - Within the Past 30 Days Yes or No: Y - Date of First Admission Date of 1st Admission: 10/03/21 - Date of this Admission Date of Admission: 10/07/21 This admission was: Through ED - Office Visit Since 1st Admission Have you seen your PCP in the office since discharge?: No Had an appointment Been Scheduled?: No Describe barriers for scheduling or getting an appointment: Patient discharged AMA. - Speicalist Appointments Have you seen any other specialist since your 1st Admission?: No - I. Interview patient and/or Family Difficulty reaching your doctor or getting an office appt?: No Have you had trouble purchasing/ or taking medication?: No Have you had trouble with getting meals at home?: No Did you feel ready for discharge when you left the last time: No If patient did not receive services, were there orders at: No What were the barriers for not receiving services?: Patient left AMA. Reason there were no orders at discharge: Patient left AMA. Did you call your physician beore you came to the ED?: No Did your physician tell you to come in?: No - If the patient had a VNA ordered Did the patient have a VNA order?: No Did you call the VNA before you came?: No Did the VNA tell you to come to the hospital?: No Do you know if the VNA called your physician?: No - Ask the Care Team Members: What do you think caused the patient to be readmitted: Bryan left the hospital AMA, even though he had a significant need for supplemental O2 and was requiring hi-flow NC. - ED visits How many ED visits in the past 12 months: 2 - Assessment for Readmission Summary of readmission circumstances, based upon interviews: Bryan presented to the ED this morning with worsening pneumonia due to covid- 19. He was hypoxic and required supplemental oxygen. Bryan acknowledges that leaving the hospital AMA yesterday was not in his best interest and agrees to admission.
[2021-10-07] MEDS: Ipratropium/Albuterol 4 GM 120 PUFF INH IH ×2 (15:32→21:16)
--- NOTE | 2021-10-07 16:10 | HPE_ITS ---
Date of service: 10/07/21 Time of Service: 16:10 Assessment and Plan Assessment and plan (1) Pneumonia due to COVID-19 virus: Status: Acute Assessment and plan: Treat with dexamethasone, remdesivir, baricitinib, bronchodilators. IS/acapella. proning. Antitussives. CPAP at night. (2) Secondary bacterial pneumonia: Status: Acute Assessment and plan: Tx w/ doxycycline/ceftriaxone. (3) Respiratory failure with hypoxia: Status: Acute Assessment and plan: Due to above. As above. Wean O2 as tolerated. (4) Transaminitis: Status: Acute Assessment and plan: Will need non-emergent imaging of this. Will check hepatitis studies. Suspect due to EtOH. Monitor while on remdesivir. (5) Alcohol abuse: Assessment and plan: No evidence of EtOH W/d at this time. Will monitor. Will give thiamine/MVI, check b12/folate levels. (6) DVT prophylaxis: Status: Acute Assessment and plan: Full anticoagulation with lovenox (7) Discharge planning issues: Status: Acute Assessment and plan: DNR/DNI as confirmed by my conversation with the patient in his room. History of Present Illness History of Present Illness Chief Complaint: shortness of breath Narrative: Mr Dawkins is a 70 year old male with PMHx of alcohol abuse who left our facility AMA yesterday after an admission for acute hypoxic respiratory failure due to COVID-19, who returned to the ED today stating he is willing to be re- admitted. He is requiring 6L of O2 by NC (was saturating 92% on 15L NRB by EMS). Hospitalist admission was requested. On this admission, he also has an elevated procalcitonin, for which he was initiated on empiric doxycycline/ceftriaxone. He admitted to last drinking alcohol 1 week ago while in the ED, but cannot tell me this in our interview. Endorses cough productive of yellow sputum x 2-3 days. Review of Systems All systems reviewed & are unremarkable except as noted in HPI and below PFSH All Active Problems (Updated 10/07/21 @ 16:16 by Omayra Gould MD) Discharge planning issues (Acute) DVT prophylaxis (Acute) Secondary bacterial pneumonia (Acute) Hypoxia (Acute) Requires supplemental oxygen (Acute) Respiratory failure with hypoxia (Acute) Transaminitis (Acute) Hyponatremia (Acute) Pneumonia due to COVID-19 virus (Acute) Medical History Alcohol abuse no reported drink for 2 years Social History Smoking/Tobacco Use Status: Never Smoking risk assessment performed?: Yes Alcohol Intake: former Drug use: Never Substance use type: does not use Do you feel safe at home: Yes Do you feel safe in your relationship?: Yes Meds Allergies and Home Medications Allergies Allergy/AdvReac Type Severity Reaction Status Date / Time No Known Allergies Allergy Unverified 10/07/21 09:50 Home Medications Medication Instructions Recorded Confirmed Type Unknown [No Known Home Meds] 10/03/21 10/07/21 History Exam Narrative Exam Narrative: General: Pleasant elderly male who is working with an incentive spirometer, sitting up in bed, on 6L of O2 on HFNC, speaking in full sentences in good spirits Neurological: A&Ox3, forgetful, no focal deficits Psychiatric: Appropriate speech pattern/content Skin: Visible skin intact HEENT: Atraumatic, normocephalic, EOMI, dry MM, clear oropharynx, no submandibular or cervical lymphadenopathy, no goiter or JVD Cardiovascular: RRR, no m/r/g Lungs: crackles in B lung irvin on expiration Gastrointestinal: soft, nontender, nondistended Genitourinary: deferred Extremities: no edema BLE's, 1+ pedal pulses B Results Imaging Additional studies: CXR: Bilateral multifocal opacities.? Findings are suspicious for pneumonia.? COVID- [address] be [address] c-spine :1. No acute fracture or subluxation in the cervical spine. 2. Emphysematous changes in the lung apices.? Area of spiculation in the right lung apex which has a similar appearance dating back to 2010 and appears to reflect scarring. Labs Result diagrams: 10/07/21 11:25 10/07/21 11:25 Labs: Laboratory Results - last 24 hr 10/07/21 10/07/21 10/07/21 11:25 11:25 11:25 WBC 9.82 RBC 5.39 Hgb 18.0 H D Hct 52.2 H MCV 96.8 H MCH 33.4 H MCHC 34.5 RDW 12.8 Plt Count 252 MPV 10.9 Immature Gran % 0.8 Neutrophils % 89.3 Lymphocytes % 5.2 Monocytes % 4.4 Eosinophils % 0.1 Basophils % 0.2 Nucleated RBC % 0 Absolute Neutrophils 8.77 H Absolute Lymphocytes 0.51 L Absolute Monocytes 0.43 Absolute Eosinophils 0.01 Absolute Basophils 0.02 RBC Morphology Normal VBG Lactate 2.5 H* Sodium 136 Potassium 4.0 Chloride 101 Carbon Dioxide 25.4 Anion Gap 9.6 BUN 23 H Creatinine 1.0 Estimated GFR/1.73 m2 >= 60.00 Glucose 139 H Calcium 9.3 Magnesium 2.5 H Total Bilirubin 1.6 H AST 89 H ALT 75 H Alkaline Phosphatase 115 Troponin I < 50 Total Protein 8.4 H Albumin 3.2 L Procalcitonin 0.5 Last Vital Signs Temp 35.5 C L 10/07/21 15:43 Pulse 83 10/07/21 15:43 Resp 30 H 10/07/21 15:43 BP 121/72 10/07/21 15:43 Pulse Ox 92 10/07/21 15:43
--- NOTE | 2021-10-07 17:13 | RESPIRATORY ---
cpap and hiflow set up for pt use per nurse request. pt is not currently using either.
[2021-10-07] MEDS: Thiamine 100 MG TAB PO (17:48)
[2021-10-07] MEDS: guaiFENesin 600 MG TABCR PO (21:12)
[2021-10-07] MEDS: Benzonatate 100 MG CAP PO (21:12)
[2021-10-07] MEDS: Melatonin 3 MG TAB PO (21:12)
[2021-10-07] MEDS: Famotidine 20 MG TAB PO (21:12)
[2021-10-07] MEDS: Ascorbic Acid 500 MG TAB 1000 MG PO (21:12)
[2021-10-08] VITALS (16 sets, daily range): BP systolic 103–134; BP diastolic 56–77; PULSE 59–77; RESP 18–31; TEMP 35–36.7; O2SAT 89–97
[2021-10-08] MEDS: Enoxaparin 60 MG/0.6 ML SYR SC ×2 (02:43→14:48)
[2021-10-08] MEDS: Famotidine 20 MG TAB PO ×2 (08:17→21:14)
[2021-10-08] MEDS: Benzonatate 100 MG CAP PO ×3 (08:17→21:14)
[2021-10-08] MEDS: Multivitamin w/Minerals TAB 1 TAB PO (08:17)
[2021-10-08] MEDS: Thiamine 100 MG TAB PO (08:17)
[2021-10-08] MEDS: guaiFENesin 600 MG TABCR PO ×2 (08:17→21:14)
[2021-10-08] MEDS: Cholecalciferol (Vitamin D3) 1,000 UNIT TAB 2000 UNITS PO (08:17)
[2021-10-08] MEDS: Ascorbic Acid 500 MG TAB 1000 MG PO ×2 (08:17→21:14)
[2021-10-08] MEDS: Normal Saline Flush 10 ML SYR IVP ×4 (08:18→21:13)
[2021-10-08] MEDS: Ipratropium/Albuterol 4 GM 120 PUFF INH IH ×4 (08:18→21:31)
[2021-10-08 08:53] LABS: Absolute Basophil Count 0.01 10^3/uL (0.0-0.2); Absolute Lymphocyte Count 0.84 10^3/uL (1.2-3.4); Absolute Monocyte Count 0.43 10^3/uL (0.1-0.8); Absolute Neutrophil Count 9.84 10^3/uL (1.2-6.7); Basophils % 0.1; HCT 48.7 % (40.0-50.0); HGB 16.5 g/dL (13.5-17.5); Immature Grans % 0.9; Lymphocytes % 7.5; MCH 33.1 pg (27.0-33.0); MCHC 33.9 % (32.0-36.0); MCV 97.6 fL (80-95); MPV 11.1 fL (8.0-11.0); Monocytes % 3.8; Neutrophils % 87.7; Nucleated RBC 0 %; Platelet Count 272 10^3/uL (130-400); RBC 4.99 10^6/uL (4.36-5.78); RDW 12.9 % (11.8-14.1); WBC 11.22 10^3/uL (4.4-10.8)
[2021-10-08 08:56] LABS: Lactate 2.1 mmol/L (0.6-1.4)
[2021-10-08 09:06] LABS: INR 1.3 (0.9-1.1); Prothrombin Time 13.3 sec (9.3-11.0)
[2021-10-08 09:12] LABS: ALT 56 U/L (16-63); AST 49 U/L (15-37); Albumin 2.7 g/dL (3.4-5.0); Alkaline Phosphatase 100 U/L (46-116); Anion Gap 8.4 mmol/L (3-11); BUN 26 mg/dL (7-18); Bilirubin, Direct 0.5 mg/dL (0.0-0.2); CO2 24.6 mmol/L (21.0-32.0); CREATININE 0.8 mg/dL (0.70-1.30); Calcium 8.8 mg/dL (8.5-10.1); Chloride 105 mmol/L (98-107); Glucose 134 mg/dL (74-106); PHOSPHORUS 2.8 mg/dL (2.6-4.7); Potassium 3.8 mmol/L (3.5-5.1); Sodium 138 mmol/L (136-145); Total Protein 7.5 g/dL (6.4-8.2)
[2021-10-08 09:14] LABS: C-Reactive Protein 14.01 mg/dL (0.0-0.3); Creatine Kinase 26 U/L (39-308); Magnesium 2.5 mg/dL (1.8-2.4)
[2021-10-08 09:33] LABS: D-Dimer > 7500 ng/mlFEU (<500)
[2021-10-08 11:18] LABS: Folate 6.9 ng/mL (8.6-20.0); Vitamin B12 1195 pg/mL (193-986)
[2021-10-08 11:20] LABS: Ferritin > 2000 ng/mL (26-388)
[2021-10-08] MEDS: DOXYCYCLINE 100 MG in Normal Saline 100 ML IVPB ×2 (11:27→21:14)
[2021-10-08] MEDS: Dexamethasone 4 MG/ML VIAL 6 MG IVP (12:36)
[2021-10-08] MEDS: cefTRIAXone 1 GM/50 ML BAG IVPB (12:36)
[2021-10-08] MEDS: REMDESIVIR 100 MG in Normal Saline 250 ML 250 MG IVPB (14:48)
--- NOTE | 2021-10-08 17:01 | W.PM.PROGNOT ---
Date of Service Date of service: 10/08/21 Time of Service: 17:01 Assessment and Plan Assessment and plan (1) Pneumonia due to COVID-19 virus: Status: Acute Assessment and plan: Continue dexamethasone, remdesivir, baricitinib, bronchodilators. IS/acapella. Encourage proning. Antitussives. CPAP at night; encouraged switching to humidified heated high flow system rather than regular 8L high flow NC. (2) Secondary bacterial pneumonia: Status: Acute Assessment and plan: Continue doxycycline/ceftriaxone. (3) Respiratory failure with hypoxia: Status: Acute Assessment and plan: Due to above. As above. Wean O2 as tolerated. (4) Transaminitis: Status: Acute Assessment and plan: Will need non-emergent imaging of this. Await hepatitis studies. Suspect due to EtOH. Monitor while on remdesivir. (5) Alcohol abuse: Assessment and plan: No evidence of EtOH W/d. Continue monitoring on CIWA. Continue thiamine/MVI, check b12/folate levels. (6) DVT prophylaxis: Status: Acute Assessment and plan: Full anticoagulation with lovenox (7) Discharge planning issues: Status: Acute Assessment and plan: DNR/DNI as confirmed by my conversation with the patient in his room. Subjective Subjective Interval history since last seen: Feels better today. Has been alternating between 8 L HFNC and CPAP (PEEP 8 FiO2 50%). Denies dizziness, chest pain, shortness of breath at rest, nausea, abdominal pain. Exam Narrative Exam Narrative: General: Pleasant elderly male who is uncomfortable on CPAP (it is cutting into his head), A&Ox3, no resp distress. HEENT: EOMI, MMM Cardiovascular: RRR, no m/r/g Lungs: rales at R base, diminished breath sounds on L Gastrointestinal: soft, nontender, nondistended Extremities: no edema BLE's Objective Last Vital Signs Temp 35.9 C L 10/08/21 15:07 Pulse 67 10/08/21 15:07 Resp 31 H 10/08/21 15:07 BP 123/76 10/08/21 15:07 Pulse Ox 89 L 10/08/21 16:58 Laboratory Results - last 24 hr 10/08/21 10/08/21 10/08/21 08:35 08:35 08:35 WBC RBC Hgb Hct MCV MCH MCHC RDW Plt Count MPV Immature Gran % Neutrophils % Lymphocytes % Monocytes % Eosinophils % Basophils % Nucleated RBC % Absolute Neutrophils Absolute Lymphocytes Absolute Monocytes Absolute Eosinophils Absolute Basophils PT INR D-Dimer VBG Lactate 2.1 H Sodium 138 Potassium 3.8 Chloride 105 Carbon Dioxide 24.6 Anion Gap 8.4 BUN 26 H Creatinine 0.8 Estimated GFR/1.73 m2 >= 60.00 Glucose 134 H Calcium 8.8 Phosphorus 2.8 Magnesium 2.5 H Ferritin > 2000 H Total Bilirubin 1.0 Conjugated Bilirubin 0.5 H AST 49 H ALT 56 Alkaline Phosphatase 100 Creatine Kinase 26 L C-Reactive Protein 14.01 H Total Protein 7.5 Albumin 2.7 L Vitamin B12 1195 H Folate 6.9 L 10/08/21 10/08/21 08:35 08:35 WBC 11.22 H RBC 4.99 Hgb 16.5 Hct 48.7 MCV 97.6 H MCH 33.1 H MCHC 33.9 RDW 12.9 Plt Count 272 MPV 11.1 H Immature Gran % 0.9 Neutrophils % 87.7 Lymphocytes % 7.5 Monocytes % 3.8 Eosinophils % 0.0 Basophils % 0.1 Nucleated RBC % 0 Absolute Neutrophils 9.84 H Absolute Lymphocytes 0.84 L Absolute Monocytes 0.43 Absolute Eosinophils 0.00 Absolute Basophils 0.01 PT 13.3 H INR 1.3 H D-Dimer > 7500 H VBG Lactate Sodium Potassium Chloride Carbon Dioxide Anion Gap BUN Creatinine Estimated GFR/1.73 m2 Glucose Calcium Phosphorus Magnesium Ferritin Total Bilirubin Conjugated Bilirubin AST ALT Alkaline Phosphatase Creatine Kinase C-Reactive Protein Total Protein Albumin Vitamin B12 Folate
[2021-10-08] MEDS: Melatonin 3 MG TAB PO (21:14)
[2021-10-09] VITALS (8 sets, daily range): BP systolic 99–122; BP diastolic 58–71; PULSE 52–73; RESP 18–20; TEMP 34–36.9; O2SAT 91–94
[2021-10-09] MEDS: Enoxaparin 60 MG/0.6 ML SYR SC ×2 (02:48→14:21)
[2021-10-09 02:49] LABS: Vitamin D 25 Total 38.9 ng/mL (30-100)
[2021-10-09 07:59] LABS: Abs Immature Grans 0.22 10^3/uL (0.0-0.06); Absolute Basophil Count 0.02 10^3/uL (0.0-0.2); Basophils % 0.1; HCT 42.8 % (40.0-50.0); HGB 14.5 g/dL (13.5-17.5); Immature Grans % 1.4; MCH 33.1 pg (27.0-33.0); MCHC 33.9 % (32.0-36.0); MCV 97.7 fL (80-95); Monocytes % 4.3; Neutrophils % 90.2; Nucleated RBC 0 %; Platelet Count 305 10^3/uL (130-400); RBC 4.38 10^6/uL (4.36-5.78); RDW-SD 46.5 fL; WBC 16.18 10^3/uL (4.4-10.8)
[2021-10-09 08:00] LABS: Absolute Lymphocyte Count 0.65 10^3/uL (1.2-3.4); Absolute Neutrophil Count 14.59 10^3/uL (1.2-6.7)
[2021-10-09 08:13] LABS: ALT 46 U/L (16-63); AST 47 U/L (15-37); Albumin 2.3 g/dL (3.4-5.0); Alkaline Phosphatase 82 U/L (46-116); Anion Gap 9.5 mmol/L (3-11); BUN 27 mg/dL (7-18); Bilirubin, Direct 0.4 mg/dL (0.0-0.2); Bilirubin, Total 0.8 mg/dL (0.2-1.0); C-Reactive Protein 5.74 mg/dL (0.0-0.3); CO2 20.5 mmol/L (21.0-32.0); CREATININE 0.8 mg/dL (0.70-1.30); Calcium 8.3 mg/dL (8.5-10.1); Chloride 107 mmol/L (98-107); Glucose 115 mg/dL (74-106); Magnesium 2.2 mg/dL (1.8-2.4); PHOSPHORUS 3.5 mg/dL (2.6-4.7); Sodium 137 mmol/L (136-145); Total Protein 6.2 g/dL (6.4-8.2)
[2021-10-09] MEDS: Multivitamin w/Minerals TAB 1 TAB PO (08:26)
[2021-10-09] MEDS: Famotidine 20 MG TAB PO ×2 (08:26→21:06)
[2021-10-09] MEDS: Benzonatate 100 MG CAP PO ×3 (08:26→21:07)
[2021-10-09] MEDS: Ascorbic Acid 500 MG TAB 1000 MG PO ×2 (08:26→21:06)
[2021-10-09] MEDS: Thiamine 100 MG TAB PO (08:26)
[2021-10-09] MEDS: Cholecalciferol (Vitamin D3) 1,000 UNIT TAB 2000 UNITS PO (08:26)
[2021-10-09] MEDS: guaiFENesin 600 MG TABCR PO ×2 (08:26→21:06)
[2021-10-09] MEDS: Ipratropium/Albuterol 4 GM 120 PUFF INH IH ×4 (08:27→21:07)
[2021-10-09 08:31] LABS: D-Dimer 5025 ng/mlFEU (<500)
[2021-10-09 08:46] LABS: INR 1.3 (0.9-1.1); Prothrombin Time 13.4 sec (9.3-11.0)
[2021-10-09 09:00] LABS: Ferritin 1531 ng/mL (26-388)
[2021-10-09] MEDS: DOXYCYCLINE 100 MG in Normal Saline 100 ML IVPB ×2 (09:52→21:07)
[2021-10-09] MEDS: Folic Acid 1 MG TAB PO (09:52)
[2021-10-09] MEDS: Normal Saline Flush 10 ML SYR IVP ×3 (09:52→21:06)
[2021-10-09 10:01] LABS: HBs Antibody, Qual Negative (See Note); HBs Antibody, Quant <3.1 mIU/mL (See Note); Hepatitis B Core Antibody Negative (Negative); Hepatitis B surface Ag Negative (Negative); Hepatitis C Ab w Rflx HCV PCR Negative (Negative)
[2021-10-09] MEDS: Dexamethasone 4 MG/ML VIAL 6 MG IVP (11:19)
[2021-10-09] MEDS: cefTRIAXone 1 GM/50 ML BAG IVPB (11:19)
--- NOTE | 2021-10-09 12:06 | PHA.REVIEW ---
Pharmacy Admission Review - Admission Clinical Review (Last Updated 10/07/21 @ 10:29 by Jane Issa DO) Discharge planning issues (Acute) DVT prophylaxis (Acute) Secondary bacterial pneumonia (Acute) Hypoxia (Acute) Requires supplemental oxygen (Acute) Respiratory failure with hypoxia (Acute) Transaminitis (Acute) Pneumonia due to COVID-19 virus (Acute) No Known Allergies Allergy (Unverified 10/07/21 09:50) Resuscitation Status DNR/DNI Height 5 ft 5 in Weight 65.771 kg - Renal Dosing Renal Dosing: BUN 27 mg/dL (7-18) H 10/09/21 07:40 Creatinine 0.8 mg/dL (0.70-1.30) 10/09/21 07:40 Medications needing adjustments: Reviewed (Crcl ~74 mL/min, current meds okay) - Anticoagulation Anticoagulation: Hgb 14.5 g/dL (13.5-17.5) 10/09/21 07:40 Hct 42.8 % (40.0-50.0) 10/09/21 07:40 Plt Count 305 10^3/uL (130-400) 10/09/21 07:40 INR 1.3 (0.9-1.1) H 10/09/21 07:40 Creatinine 0.8 mg/dL (0.70-1.30) 10/09/21 07:40 DVT Prophylaxis: Reviewed Medications: Enoxaparin (dosing accurate based on current covid anticoagulation recommendations) - Opiate Usage Evaluate Pain Scale/Pains Meds: N/A - Relevant Labs Sodium 137 mmol/L (136-145) 10/09/21 07:40 Potassium 4.0 mmol/L (3.5-5.1) 10/09/21 07:40 Chloride 107 mmol/L (98-107) 10/09/21 07:40 Phosphorus 3.5 mg/dL (2.6-4.7) 10/09/21 07:40 Magnesium 2.2 mg/dL (1.8-2.4) 10/09/21 07:40 C-Reactive Protein 5.74 mg/dL (0.0-0.3) H 10/09/21 07:40 Electrolytes, C-Reactive P, ESR: Reviewed - DM Control DM Control: Glucose 115 mg/dL (74-106) H 10/09/21 07:40 Insulin Dosing: N/A (A1c from 10/04/21 6.0) - Heart Failure/NM Heart Failure/NM: Troponin I < 50 ng/L (<or=60) 10/07/21 11:25 EF%, CORIE's, B-Blockers, Diuretics: Reviewed - BP Control BP Control: Blood Pressure 99/58 Blood Pressure 116/70 Blood Pressure 118/70 If elevated: Reviewed (BP has been normal to low so far this admission) - Qtc Review If Elevated: N/A (QTc 458 on admission) - IV to PO Switch IV Medications: Reviewed - Home Meds Home Med List reviewed: Reviewed (no known home meds) - Current meds Current Medication Order Review: Intervened (Asked provider about adjusting stop time of baricitinib as pt received 4 doses before leaving AMA and returning; pt to receive 10 doses on this account for a total of 14 doses. The same adjustment was made on the remdesivir this weekend (3 doses on previous account 7 on this one for 10 total doses).) - Comments Comments/Follow Ups: Watch BP, BG, labs and for med changes. Antibiotic Activity - Pharmacy Antibiotic Review Pharmacy Antibiotic Activity: C/S review (ceftriaxone and doxycycline ordered for secondary bacterial pneumonia per progress note (day 3). Blood cultures no growth at 24 hours.)
[2021-10-09] MEDS: REMDESIVIR 100 MG in Normal Saline 250 ML 250 MG IVPB (14:22)
--- NOTE | 2021-10-09 17:22 | W.PM.PROGNOT ---
Date of Service Date of service: 10/09/21 Time of Service: 16:45 Assessment and Plan Assessment and plan (1) Pneumonia due to COVID-19 virus: Status: Acute Assessment and plan: Continue dexamethasone, remdesivir, baricitinib, bronchodilators. Encourage IS/acapella. Encourage proning/turning side to side. Antitussives. Refuses CPAP at night; on humidified heated high flow NC. Wean o2 as tolerated. (2) Secondary bacterial pneumonia: Status: Acute Assessment and plan: Continue doxycycline/ceftriaxone. (3) Respiratory failure with hypoxia: Status: Acute Assessment and plan: Due to above. As above. Wean O2 as tolerated. (4) Transaminitis: Status: Acute Assessment and plan: Will need non-emergent imaging of this. Hepatitis studies negative. Suspect due to EtOH. Monitor while on remdesivir. (5) Alcohol abuse: Assessment and plan: No evidence of EtOH W/d. Continue monitoring on CIWA. Continue thiamine/MVI. Replete Folate. (6) DVT prophylaxis: Status: Acute Assessment and plan: Full anticoagulation with lovenox (7) Discharge planning issues: Status: Acute Assessment and plan: DNR/DNI as confirmed by my conversation with the patient in his room. Subjective Subjective Interval history since last seen: Mr Dawkins is feeling great. He was transitioned to a humidified heated high flow NC with 40% FiO2 45L, refusing to wear CPAP last night. He has not been proning consistently and has not been turning side to side consistently. We had a conversation about this, after which he turned to his right side. He denies dizziness, chest pain, shortness of breath, nausea. Exam Narrative Exam Narrative: General: Pleasant elderly male who appears very comfortable on humidified heated high flow NC; laying on his back when I arrived, [place], A&Ox3 HEENT: EOMI, MMM Cardiovascular: RRR, no m/r/g Lungs: Rales at L base Gastrointestinal: soft, nontender, nondistended Extremities: no edema BLE's Objective Last Vital Signs Temp 35.5 C L 10/09/21 17:09 Pulse 73 10/09/21 17:09 Resp 18 10/09/21 17:09 BP 122/71 10/09/21 17:09 Pulse Ox 94 10/09/21 17:09 Laboratory Results - last 24 hr 10/08/21 10/08/21 10/09/21 08:35 08:35 05:35 WBC RBC Hgb Hct MCV MCH MCHC RDW Plt Count MPV Immature Gran % Neutrophils % Lymphocytes % Monocytes % Eosinophils % Basophils % Nucleated RBC % Absolute Neutrophils Absolute Lymphocytes Absolute Monocytes Absolute Eosinophils Absolute Basophils PT Cancelled INR Cancelled D-Dimer Cancelled Sodium Potassium Chloride Carbon Dioxide Anion Gap BUN Creatinine Estimated GFR/1.73 m2 Glucose Calcium Phosphorus Magnesium Ferritin Total Bilirubin Conjugated Bilirubin AST ALT Alkaline Phosphatase C-Reactive Protein Total Protein Albumin 25-OH Vitamin D Total 38.9 Hep Bs Antigen Negative Hep Bs Antibody Negative Hep Bs Antibody, Quant <3.1 Hep B Core Total Ab Negative Hepatitis C Antibody Negative 10/09/21 10/09/21 10/09/21 06:30 07:40 07:40 WBC 16.18 H D RBC 4.38 Hgb 14.5 Hct 42.8 MCV 97.7 H MCH 33.1 H MCHC 33.9 RDW 13.0 Plt Count 305 MPV 11.0 Immature Gran % 1.4 Neutrophils % 90.2 Lymphocytes % 4.0 Monocytes % 4.3 Eosinophils % 0.0 Basophils % 0.1 Nucleated RBC % 0 Absolute Neutrophils 14.59 H Absolute Lymphocytes 0.65 L Absolute Monocytes 0.70 Absolute Eosinophils 0.00 Absolute Basophils 0.02 PT 13.4 H INR 1.3 H D-Dimer 5025 H Sodium Cancelled Potassium Cancelled Chloride Cancelled Carbon Dioxide Cancelled Anion Gap Cancelled BUN Cancelled Creatinine Cancelled Estimated GFR/1.73 m2 Cancelled Glucose Cancelled Calcium Cancelled Phosphorus Cancelled Magnesium Cancelled Ferritin Cancelled Total Bilirubin Cancelled Conjugated Bilirubin Cancelled AST Cancelled ALT Cancelled Alkaline Phosphatase Cancelled C-Reactive Protein Cancelled Total Protein Cancelled Albumin Cancelled 25-OH Vitamin D Total Hep Bs Antigen Hep Bs Antibody Hep Bs Antibody, Quant Hep B Core Total Ab Hepatitis C Antibody 10/09/21 07:40 WBC RBC Hgb Hct MCV MCH MCHC RDW Plt Count MPV Immature Gran % Neutrophils % Lymphocytes % Monocytes % Eosinophils % Basophils % Nucleated RBC % Absolute Neutrophils Absolute Lymphocytes Absolute Monocytes Absolute Eosinophils Absolute Basophils PT INR D-Dimer Sodium 137 Potassium 4.0 Chloride 107 Carbon Dioxide 20.5 L Anion Gap 9.5 BUN 27 H Creatinine 0.8 Estimated GFR/1.73 m2 >= 60.00 Glucose 115 H Calcium 8.3 L Phosphorus 3.5 Magnesium 2.2 Ferritin 1531 H Total Bilirubin 0.8 Conjugated Bilirubin 0.4 H AST 47 H ALT 46 Alkaline Phosphatase 82 C-Reactive Protein 5.74 H Total Protein 6.2 L Albumin 2.3 L 25-OH Vitamin D Total Hep Bs Antigen Hep Bs Antibody Hep Bs Antibody, Quant Hep B Core Total Ab Hepatitis C Antibody
--- NOTE | 2021-10-09 17:46 | CMPROGNOTE_ITS ---
- If Service Date Differs Date of service: 10/09/21 Time of Service: 17:46 Care Management Progress Note S/O: Bryan continues to be on Covid 19 precautions, therefore CM was not able to meet with him in person. Per report, he has high O2 requirements, humidified heated high flow NC with 40% FiO2 45L. He has not been compliant with wearing his CPAP or proning, but has been turning from side to side. His O2 will be weaned as tolerated. CM will continue to follow. A: Bryan is a 70 year old male admitted to [facility] on 10/07/21 for Covid 19, bacterial pneumonia, hypoxic respiratory failure. P: Bryan will likely return home with no new services when medically ready. He will be driven home via private vehicle by family. He will follow up with his PCP and discharge plan of care. CM will continue to support discharge planning needs including need for new home O2, if indicated.
[2021-10-09] MEDS: Melatonin 3 MG TAB PO (21:06)
[2021-10-10] VITALS (14 sets, daily range): BP systolic 95–137; BP diastolic 53–74; PULSE 54–91; RESP 14–20; TEMP 35.3–36.3; O2SAT 89–96
[2021-10-10] MEDS: Enoxaparin 60 MG/0.6 ML SYR SC ×2 (01:32→14:37)
--- NOTE | 2021-10-10 06:50 | NUR.NOTE ---
Nursing Note: Pt offered Cpap over night. Pt refused the Cpap as he is unable to sleep with it on. Teaching provided to pt. Pt states he understands the risks of refusal. Pt also coached on proning. Pt stated that his is only able to turn side to side. He said that he would not be able to lay on his stomach. Teaching provided about proning. Pt understands the risks. Pt denies shortness of breath, dizziness or lightheadedness throughout the shift. Pt using IS and Acapella
[2021-10-10 07:14] LABS: Abs Immature Grans 0.14 10^3/uL (0.0-0.06); Absolute Basophil Count 0.01 10^3/uL (0.0-0.2); Absolute Lymphocyte Count 0.65 10^3/uL (1.2-3.4); Absolute Monocyte Count 0.64 10^3/uL (0.1-0.8); Basophils % 0.1; HCT 43.2 % (40.0-50.0); HGB 14.9 g/dL (13.5-17.5); Immature Grans % 1.2; Lymphocytes % 5.4; MCH 33.3 pg (27.0-33.0); MCHC 34.5 % (32.0-36.0); MCV 96.4 fL (80-95); MPV 11.2 fL (8.0-11.0); Monocytes % 5.3; Nucleated RBC 0 %; Platelet Count 312 10^3/uL (130-400); RBC 4.48 10^6/uL (4.36-5.78); RDW 13.1 % (11.8-14.1); RDW-SD 46.5 fL; WBC 12.11 10^3/uL (4.4-10.8)
[2021-10-10 07:18] LABS: Absolute Neutrophil Count 10.66 10^3/uL (1.2-6.7)
[2021-10-10 07:44] LABS: INR 1.3 (0.9-1.1); Prothrombin Time 13.1 sec (9.3-11.0)
[2021-10-10 07:57] LABS: Procalcitonin 0.1 ng/mL
[2021-10-10 08:00] LABS: D-Dimer 2276 ng/mlFEU (<500)
[2021-10-10 08:11] LABS: ALT 51 U/L (16-63); AST 45 U/L (15-37); Albumin 2.4 g/dL (3.4-5.0); Alkaline Phosphatase 89 U/L (46-116); Anion Gap 10.6 mmol/L (3-11); BUN 27 mg/dL (7-18); CO2 20.4 mmol/L (21.0-32.0); CREATININE 0.7 mg/dL (0.70-1.30); Calcium 8.3 mg/dL (8.5-10.1); Chloride 104 mmol/L (98-107); Glucose 92 mg/dL (74-106); Magnesium 2.1 mg/dL (1.8-2.4); Potassium 4.1 mmol/L (3.5-5.1); Sodium 135 mmol/L (136-145); Total Protein 6.3 g/dL (6.4-8.2)
[2021-10-10 08:12] LABS: Ferritin 1661 ng/mL (26-388)
[2021-10-10 08:19] LABS: Bilirubin, Direct 0.4 mg/dL (0.0-0.2); C-Reactive Protein 2.92 mg/dL (0.0-0.3)
[2021-10-10] MEDS: Famotidine 20 MG TAB PO ×2 (08:25→19:32)
[2021-10-10] MEDS: Benzonatate 100 MG CAP PO ×3 (08:25→19:32)
[2021-10-10] MEDS: Ascorbic Acid 500 MG TAB 1000 MG PO ×2 (08:26→19:32)
[2021-10-10] MEDS: Cholecalciferol (Vitamin D3) 1,000 UNIT TAB 2000 UNITS PO (08:26)
[2021-10-10] MEDS: Thiamine 100 MG TAB PO (08:26)
[2021-10-10] MEDS: Ipratropium/Albuterol 4 GM 120 PUFF INH IH ×4 (08:26→19:34)
[2021-10-10] MEDS: guaiFENesin 600 MG TABCR PO ×2 (08:26→19:32)
[2021-10-10] MEDS: Folic Acid 1 MG TAB PO (08:26)
[2021-10-10] MEDS: Multivitamin w/Minerals TAB 1 TAB PO (08:26)
[2021-10-10] MEDS: DOXYCYCLINE 100 MG in Normal Saline 100 ML IVPB ×2 (11:04→21:16)
[2021-10-10] MEDS: Normal Saline Flush 10 ML SYR IVP ×3 (11:04→22:31)
[2021-10-10] MEDS: cefTRIAXone 1 GM/50 ML BAG IVPB (12:10)
[2021-10-10] MEDS: Dexamethasone 4 MG/ML VIAL 6 MG IVP (12:11)
[2021-10-10] MEDS: REMDESIVIR 100 MG in Normal Saline 250 ML 250 MG IVPB (14:38)
--- NOTE | 2021-10-10 17:53 | W.PM.PROGNOT ---
Date of Service Date of service: 10/10/21 Time of Service: 17:54 Assessment and Plan Assessment and plan (1) Pneumonia due to COVID-19 virus: Status: Acute Assessment and plan: Improving. Continue dexamethasone, remdesivir, baricitinib, bronchodilators. Encourage IS/acapella. Encourage proning/turning side to side. Antitussives. Wean o2 as tolerated. (2) Secondary bacterial pneumonia: Status: Acute Assessment and plan: Continue doxycycline/ceftriaxone. Procalcitonin is improving. (3) Respiratory failure with hypoxia: Status: Acute Assessment and plan: Due to above. As above. Wean O2 as tolerated. (4) Transaminitis: Status: Acute Assessment and plan: Will need non-emergent imaging of this. Hepatitis studies negative. Suspect due to EtOH. Monitor while on remdesivir. (5) Alcohol abuse: Assessment and plan: No evidence of EtOH W/d. Continue monitoring on CIWA. Continue thiamine/MVI. Replete Folate. (6) DVT prophylaxis: Status: Acute Assessment and plan: Full anticoagulation with lovenox (7) Discharge planning issues: Status: Acute Assessment and plan: DNR/DNI as confirmed by my conversation with the patient in his room. Subjective Subjective Interval history since last seen: Mr Dawkins feels better. Denies dizziness, chest pain, shortness of breath, nausea. He is now on 3L of O2 by [place], saturating 91%. Exam Narrative Exam Narrative: General: Pleasant elderly male who appears very comfortable, sitting up in bed, A&Ox3, on 3L of O2 by [place], looks better. HEENT: EOMI, MMM Cardiovascular: RRR, no m/r/g Lungs: Rales in B lung bases Gastrointestinal: soft, nontender, nondistended Extremities: no edema BLE's Objective Last Vital Signs Temp 35.8 C L 10/10/21 14:44 Pulse 91 H 10/10/21 15:41 Resp 20 10/10/21 14:44 BP 119/74 10/10/21 14:44 Pulse Ox 91 L 10/10/21 17:40 Laboratory Results - last 24 hr 10/10/21 10/10/21 10/10/21 06:50 06:50 06:50 WBC 12.11 H RBC 4.48 Hgb 14.9 Hct 43.2 MCV 96.4 H MCH 33.3 H MCHC 34.5 RDW 13.1 Plt Count 312 MPV 11.2 H Immature Gran % 1.2 Neutrophils % 88.0 Lymphocytes % 5.4 Monocytes % 5.3 Eosinophils % 0.0 Basophils % 0.1 Nucleated RBC % 0 Absolute Neutrophils 10.66 H Absolute Lymphocytes 0.65 L Absolute Monocytes 0.64 Absolute Eosinophils 0.00 Absolute Basophils 0.01 PT INR D-Dimer Sodium 135 L Potassium 4.1 Chloride 104 Carbon Dioxide 20.4 L Anion Gap 10.6 BUN 27 H Creatinine 0.7 Estimated GFR/1.73 m2 >= 60.00 Glucose 92 Calcium 8.3 L Magnesium 2.1 Ferritin 1661 H Total Bilirubin 1.0 Conjugated Bilirubin 0.4 H AST 45 H ALT 51 Alkaline Phosphatase 89 C-Reactive Protein 2.92 H Total Protein 6.3 L Albumin 2.4 L Procalcitonin 0.1 10/10/21 06:50 WBC RBC Hgb Hct MCV MCH MCHC RDW Plt Count MPV Immature Gran % Neutrophils % Lymphocytes % Monocytes % Eosinophils % Basophils % Nucleated RBC % Absolute Neutrophils Absolute Lymphocytes Absolute Monocytes Absolute Eosinophils Absolute Basophils PT 13.1 H INR 1.3 H D-Dimer 2276 H Sodium Potassium Chloride Carbon Dioxide Anion Gap BUN Creatinine Estimated GFR/1.73 m2 Glucose Calcium Magnesium Ferritin Total Bilirubin Conjugated Bilirubin AST ALT Alkaline Phosphatase C-Reactive Protein Total Protein Albumin Procalcitonin
--- NOTE | 2021-10-10 18:19 | PDOC.CMPRO ---
- If Service Date Differs Date of service: 10/10/21 Time of Service: 18:19 Care Management Progress Note S/O: Bryan remains on Covid 19 precautions, therefore CM was unable to meet with him. Per report, he continues to require high supplemental O2, and is not compliant with proning or wearing his CPAP at night. He is now on 3L O2 on [place], which is an improvement from yesterday. He will continued to be weaned off supplemental O2, as tolerated. CM will continue to follow. A: Bryan is a 70 year old male admitted to [facility] on 10/07/21 for Covid 19, bacterial pneumonia, hypoxic respiratory failure. P: Bryan will likely return home with no new services when medically ready. He will be driven home via private vehicle by family. He will follow up with his PCP and discharge plan of care. CM will continue to support discharge planning needs including need for new home O2, if indicated.
[2021-10-10] MEDS: Melatonin 3 MG TAB PO (21:16)
[2021-10-11] VITALS (14 sets, daily range): BP systolic 104–120; BP diastolic 65–79; PULSE 52–80; RESP 16–24; TEMP 35.8–36.4; O2SAT 89–97
[2021-10-11] MEDS: Enoxaparin 60 MG/0.6 ML SYR SC ×2 (02:27→13:54)
[2021-10-11] MEDS: Ipratropium/Albuterol 4 GM 120 PUFF INH IH ×4 (07:56→19:34)
--- NOTE | 2021-10-11 08:08 | RESPIRATORY ---
PT DID NOT USE CPAP LAST NIGHT.
[2021-10-11] MEDS: Normal Saline Flush 10 ML SYR IVP ×5 (08:10→21:30)
[2021-10-11] MEDS: Cholecalciferol (Vitamin D3) 1,000 UNIT TAB 2000 UNITS PO (08:10)
[2021-10-11] MEDS: Folic Acid 1 MG TAB PO (08:11)
[2021-10-11] MEDS: Thiamine 100 MG TAB PO (08:11)
[2021-10-11] MEDS: Famotidine 20 MG TAB PO ×2 (08:11→19:33)
[2021-10-11] MEDS: Ascorbic Acid 500 MG TAB 1000 MG PO ×2 (08:11→19:33)
[2021-10-11] MEDS: guaiFENesin 600 MG TABCR PO ×2 (08:11→19:33)
[2021-10-11] MEDS: Multivitamin w/Minerals TAB 1 TAB PO (08:11)
[2021-10-11] MEDS: Benzonatate 100 MG CAP PO ×3 (08:11→19:33)
[2021-10-11] MEDS: Normal Saline 500 ML 30 ML IV (10:28)
[2021-10-11] MEDS: DOXYCYCLINE 100 MG in Normal Saline 100 ML IVPB ×2 (10:28→21:30)
--- NOTE | 2021-10-11 11:00 | W.NUTRFU ---
Date of service: 10/11/21 Time of Service: 11:00 Nutrition Note NOTE: Bryan admitted 10/07/21 for Covid 19, bacterial pneumonia, hypoxic respiratory failure with hx of ETOH abuse. Weight appropriate. Following regular meal plan and meeting 100% nutrient and fluid needs by mouth. Supplemented with thiamin, Vit C, B12 and MVI for repletion. Not considered at nutritional risk. Will continue to follow. Time Spent in Nutritional Counseling and Treatment: 0
[2021-10-11] MEDS: cefTRIAXone 1 GM/50 ML BAG IVPB (12:05)
[2021-10-11] MEDS: Dexamethasone 4 MG/ML VIAL 6 MG IVP (12:05)
[2021-10-11] MEDS: REMDESIVIR 100 MG in Normal Saline 250 ML 250 MG IVPB (14:16)
[2021-10-11] MEDS: Furosemide 20 MG/2 ML VIAL IVP (16:49)
--- NOTE | 2021-10-11 16:51 | W.PM.PROGNOT ---
Date of Service Date of service: 10/11/21 Time of Service: 16:35 Assessment and Plan Assessment and plan (1) Pneumonia due to COVID-19 virus: Status: Acute Assessment and plan: Continue dexamethasone, remdesivir, baricitinib, bronchodilators. Encourage IS/acapella. Encourage proning/turning side to side. Will give a dose of lasix 20 mg IV x 1 and monitor O2 requirement. Antitussives. Wean o2 as tolerated. (2) Secondary bacterial pneumonia: Status: Acute Assessment and plan: Continue doxycycline/ceftriaxone. Procalcitonin is improving. (3) Respiratory failure with hypoxia: Status: Acute Assessment and plan: Due to above. As above. Wean O2 as tolerated. (4) Transaminitis: Status: Acute Assessment and plan: Will need non-emergent imaging of this. Hepatitis studies negative. Suspect due to EtOH. Monitor while on remdesivir. (5) Alcohol abuse: Assessment and plan: No evidence of EtOH W/d. Continue monitoring on CIWA. Continue thiamine/MVI. Replete Folate. (6) DVT prophylaxis: Status: Acute Assessment and plan: Full anticoagulation with lovenox (7) Discharge planning issues: Status: Acute Assessment and plan: DNR/DNI as confirmed by my conversation with the patient in his room. Subjective Subjective Interval history since last seen: Feels better. Denies dizziness, chest pain, shortness of breath, nausea. On 4.5L of O2 today. Spent some of the night sleeping on his abdomen, then turning side to side. Today, he sat in the chair and now is sitting up in bed, more interested in watching TV than proning. Exam Narrative Exam Narrative: General: Pleasant elderly male who is comfortable, sitting up in bed, A&Ox3, on 4.5L of O2 by [place], looks better. HEENT: EOMI, MMM Cardiovascular: RRR, no m/r/g Lungs: Rales at L lung base Gastrointestinal: soft, nontender, nondistended Extremities: no edema BLE's Objective Last Vital Signs Temp 36.4 C L 10/11/21 16:00 Pulse 57 L 10/11/21 16:00 Resp 24 10/11/21 16:00 BP 110/66 10/11/21 16:00 Pulse Ox 94 10/11/21 16:00
--- NOTE | 2021-10-11 17:25 | CMPROGNOTE_ITS ---
- If Service Date Differs Date of service: 10/11/21 Time of Service: 17:25 Care Management Progress Note S/O: Bryan remains on Covid 19 precautions, therefore CM could not meet with him in person. CM made several attempts to call Bryan, with no success. Per report, he continues to improve, and was requiring 4L O2 today. He has not been compliant with proning or wearing a CPAP, but he is encouraged by staff to do so in order to improve more quickly. He continues to require hospitalization, but is improving. CM will continue to follow. A: Bryan is a 70 year old male admitted to [facility] on 10/07/21 for Covid 19, bacterial pneumonia, hypoxic respiratory failure. P: Bryan will likely return home with no new services when medically ready. He will be driven home via private vehicle by family. He will follow up with his PCP and discharge plan of care. CM will continue to support discharge planning needs including need for new home O2, if indicated.
[2021-10-11] MEDS: Melatonin 3 MG TAB PO (21:30)
[2021-10-12] VITALS (11 sets, daily range): BP systolic 98–121; BP diastolic 59–75; PULSE 59–72; RESP 16–20; TEMP 35.5–36.7; O2SAT 89–95
[2021-10-12] MEDS: Enoxaparin 60 MG/0.6 ML SYR SC ×2 (02:49→14:30)
--- NOTE | 2021-10-12 07:22 | RESPIRATORY ---
pt states did not wear cpap last night
[2021-10-12] MEDS: Ipratropium/Albuterol 4 GM 120 PUFF INH IH ×4 (07:23→23:25)
[2021-10-12 08:13] LABS: INR 1.4 (0.9-1.1); Prothrombin Time 13.7 sec (9.3-11.0)
[2021-10-12 08:17] LABS: ALT 85 U/L (16-63); AST 67 U/L (15-37); Albumin 2.7 g/dL (3.4-5.0); Alkaline Phosphatase 106 U/L (46-116); Anion Gap 8.4 mmol/L (3-11); BUN 32 mg/dL (7-18); Bilirubin, Direct 0.5 mg/dL (0.0-0.2); Bilirubin, Total 1.3 mg/dL (0.2-1.0); CO2 23.6 mmol/L (21.0-32.0); CREATININE 0.8 mg/dL (0.70-1.30); Calcium 8.9 mg/dL (8.5-10.1); Chloride 103 mmol/L (98-107); Glucose 89 mg/dL (74-106); Magnesium 2.2 mg/dL (1.8-2.4); Sodium 135 mmol/L (136-145); Total Protein 6.9 g/dL (6.4-8.2)
[2021-10-12] MEDS: Benzonatate 100 MG CAP PO ×3 (08:23→23:18)
[2021-10-12] MEDS: Folic Acid 1 MG TAB PO (08:23)
[2021-10-12] MEDS: Ascorbic Acid 500 MG TAB 1000 MG PO ×2 (08:23→23:18)
[2021-10-12] MEDS: guaiFENesin 600 MG TABCR PO ×2 (08:23→23:18)
[2021-10-12] MEDS: Multivitamin w/Minerals TAB 1 TAB PO (08:23)
[2021-10-12] MEDS: Cholecalciferol (Vitamin D3) 1,000 UNIT TAB 2000 UNITS PO (08:23)
[2021-10-12] MEDS: Famotidine 20 MG TAB PO ×2 (08:23→23:18)
[2021-10-12] MEDS: Thiamine 100 MG TAB PO (08:24)
[2021-10-12 08:34] LABS: D-Dimer 1370 ng/mlFEU (<500)
[2021-10-12 08:37] LABS: Procalcitonin 0.1 ng/mL
[2021-10-12 08:43] LABS: Abs Immature Grans 0.22 10^3/uL (0.0-0.06); Absolute Basophil Count 0.03 10^3/uL (0.0-0.2); Absolute Monocyte Count 0.82 10^3/uL (0.1-0.8); Basophils % 0.2; HCT 50.7 % (40.0-50.0); HGB 17.6 g/dL (13.5-17.5); Immature Grans % 1.7; Lymphocytes % 7.4; MCH 32.9 pg (27.0-33.0); MCHC 34.7 % (32.0-36.0); MCV 94.8 fL (80-95); MPV 11.2 fL (8.0-11.0); Monocytes % 6.2; Neutrophils % 84.5; Nucleated RBC 0 %; Platelet Count 377 10^3/uL (130-400); RBC 5.35 10^6/uL (4.36-5.78); RDW 13.1 % (11.8-14.1); RDW-SD 45.9 fL; WBC 13.17 10^3/uL (4.4-10.8)
[2021-10-12 08:46] LABS: Absolute Lymphocyte Count 0.97 10^3/uL (1.2-3.4); Absolute Neutrophil Count 11.13 10^3/uL (1.2-6.7)
[2021-10-12] MEDS: Normal Saline Flush 10 ML SYR IVP ×2 (09:35→23:22)
[2021-10-12] MEDS: DOXYCYCLINE 100 MG in Normal Saline 100 ML IVPB ×2 (09:35→23:17)
--- NOTE | 2021-10-12 10:29 | PT.INIE ---
Date of service: 10/12/21 Time of Service: 10:29 PT Notes Visit Reasons: COVID-19,Bacterial Pneumonia,Hypoxic Respiratory Physical Therapy Inpatient Initial Evaluation Date: 10/12/2021 Referring Doctor: Omayra Gould MD PT Orders: PT CONSULT: Limited ability Precautions: Fall. Standard. Activity as tolerated. COVID-19 infection. Patient Profile/Admitting Diagnosis: Bryan is a 71-year-old male admitted to the ED on 10/07/2021 with diagnosis of pneumonia due to COVID-19 virus, respiratory failure with hypoxia, transaminitis, and EtOH abuse. PMHX: All Active Problems?(Updated 10/07/21 @ 16:16 by Omayra Gould MD) Discharge planning issues (Acute) DVT prophylaxis (Acute) Secondary bacterial pneumonia (Acute) Hypoxia (Acute) Requires supplemental oxygen (Acute) Respiratory failure with hypoxia (Acute) Transaminitis (Acute) Hyponatremia (Acute) Pneumonia due to COVID-19 virus (Acute) Medical History Alcohol abuse no reported drink for 2 years Social History/Home Situation: Lives with in a private home. Will aspects of ADLs prior to admission. Still drives. Retired street department dispatcher. Has had no falls in the past year. Equipment Owned/DME: [facility] Subjective: Agreeable to PT consult. Hopeful about being able to go home when he is cleared to do so. Objective: General Observation: Supine in bed. Oxygen supplementation via [place]. Mental Status: Alert and oriented as to person, place, time, and purpose. Able to pay attention, focus, and respond appropriately. Pain: Denies Vital Signs: Oxygen saturation low 79% on 2 L/min that was able to be saturate back to above 90 after 3 minutes of rest ROM: Right Upper Extremity: Shoulder Flexion WFL. Shoulder abduction WFL. Elbow flexion WFL. Wrist flexion WFL. Functional opening and closing of hand WFL. Left Upper Extremity: Shoulder Flexion WFL. Shoulder abduction WFL. Elbow flexion WFL. Wrist flexion WFL. Functional opening and closing of hand WFL. Right Lower Extremity: Hip flexion WFL. Hip abduction WFL. Knee flexion WFL. Ankle dorsiflexion WFL. Ankle plantarflexion WFL. Left Lower Extremity: Hip flexion WFL. Hip abduction WFL. Knee flexion WFL. Ankle dorsiflexion WFL. Ankle plantarflexion WFL. Strength: Right Upper Extremity: Shoulder flexors 4/5. Shoulder abductors 4/5. Elbow flexors 4/5. Elbow extensors 4/5. Mold Checker strong. Left Upper Extremity: Shoulder flexors 4/5. Shoulder abductors 4/5. Elbow flexors 4/5. Elbow extensors 4/5. Mold Checker strong. Right Lower Extremity: Hip flexors 4-/5. Hip abductors 4-/5. Knee flexors 4/5. Knee extensors 4/5. Ankle dorsiflexors 4-/5. Ankle plantarflexors 4-/5. Left Lower Extremity: Hip flexors 4-/5. Hip abductors 4-/5. Knee flexors 4/5. Knee extensors 4/5. Ankle dorsiflexors 4-/5. Ankle plantarflexors 4-/5. Bed Mobility/Transfers: Rolling independent Supine to sit independent Sit to supine independent Sit to stand independent Stand to sit independent Bed to reclining independent Reclining chair to bed independent Gait: Instructed patient with level surface ambulation of 40 feet requiring supervision. Desaturated to 88% on 3 L but recovered back to above 90 with rest. Balance: Static Sitting: Normal Dynamic Sitting: Normal Static Standing: Normal Dynamic Standing: Good Special Tests: Mobility Limitations Standardized Measure [facility] 6 clicks Basic Mobility Inpatient Short Form: Raw Score: 23 CMS Score: 11% deficit Informed Consent/Education: Patient was instructed in purpose of PT consult and plan of care. Agreeable to proceed with established PT POC to achieve personal goals. Assessment: Bryan will require services for initiation, education, and training with room exercises. He also will require services for progression to independent ambulation without AD. Patient presents with clinical signs and symptoms consistent with current/admitting diagnoses that have resulted to mobility limitations, gait instability, generalized weakness, and overall ADL decline as demonstrated by the following impairment level findings: 1. Impaired activity tolerance 2. Impaired oxygenation during activity performance 3. Fatigue Impairments are contributing to the following functional limitations: 1. Increased completion time for mobility ADL performance 2. Increased risk for falls 3. Limited independence with ambulation Patient is assessed as a [id number] moderate complexity based on the following: History: 71-year-old male with medical history as indicated above Examination: Demonstrable impairment in strength, balance, and mobility level with underlying impairments and functional limitations as exhibited above as well as deficit score of 11% utilizing the [facility] Mobility Inpatient Short Form Presentation: Evolving Decision Makin moderate complexity Goals: Goals X1 week 1. Independent gait on level surface with use of no AD for at least 300 feet without report of pain nor dyspnea 2. Independent with home exercise program 3. Good static and dynamic standing balance/tolerance Plan of Care/Treatment Plan: 1-2x/day, 7 days/week x 1 week. Plan of care has been reviewed with the BRANCH DIRECTOR providing the service under Physical Therapy direction. Initiate Physical Therapy intervention for pain management as needed, strengthening, bed mobility, transfers, gait, stairs, balance training, and use of assistive device. DISCHARGE RECOMMENDATIONS: [] Home with no services [] [X] Home with services. Patient will benefit from home health PT services in order to progress mobility level using no ambulatory device, assess home safety, identify additional equipment needs, and establish a functional maintenance program that will increase ability of patient to remain at home. [] Home with outpatient PT [] [] SNF for continued rehabilitation [] [] [facility] [] [] SNF versus LTC based on ability to participate and progress [] TREATMENT CODE/TIME: 23464 x 15 minutes, 02586 x 13 minutes beginning at 10:29 AM. Thank you for the opportunity to participate in the care of this patient. Susan Camacho PT, DPT, CLT [facility] [place], [place]
[2021-10-12] MEDS: Dexamethasone 4 MG/ML VIAL 6 MG IVP (11:33)
[2021-10-12] MEDS: cefTRIAXone 1 GM/50 ML BAG IVPB (11:34)
[2021-10-12] MEDS: REMDESIVIR 100 MG in Normal Saline 250 ML 250 MG IVPB (14:30)
--- NOTE | 2021-10-12 16:22 | PDOC.CMPRO ---
- If Service Date Differs Date of service: 10/12/21 Time of Service: 16:22 Care Management Progress Note S/O: Bryan remains on Covid precautions, therefore CM did not meet him in person. Attempts at reaching him by phone were made and were unsuccessful. Per report, Bryan is saturating 91% on 3L. PT has been consulted to determine if he requires assistance at home. He is making improvements clinically, and may be ready for discharge in a few days, per MD. CM will continue to follow. A: Bryan is a 70 year old male admitted to [facility] on 10/07/21 for Covid 19, bacterial pneumonia, hypoxic respiratory failure. P: Bryan will likely return home with no new services when medically ready. He will be driven home via private vehicle by family. He will follow up with his PCP and discharge plan of care. CM will continue to support discharge planning needs including need for new home O2, if indicated.
--- NOTE | 2021-10-12 17:28 | W.PM.PROGNOT ---
Date of Service Date of service: 10/12/21 Time of Service: 17:00 Assessment and Plan Assessment and plan (1) Pneumonia due to COVID-19 virus: Status: Acute Assessment and plan: Continue dexamethasone, remdesivir, baricitinib, bronchodilators. Encourage IS/acapella. Encourage proning/turning side to side. Antitussives. Wean o2 as tolerated. (2) Secondary bacterial pneumonia: Status: Acute Assessment and plan: Continue doxycycline/ceftriaxone. Procalcitonin is improving. (3) Respiratory failure with hypoxia: Status: Acute Assessment and plan: Due to above. As above. Wean O2 as tolerated. (4) Transaminitis: Status: Acute Assessment and plan: Will need non-emergent imaging of this. Hepatitis studies negative. Suspect due to EtOH. Monitor while on remdesivir. (5) Alcohol abuse: Assessment and plan: No evidence of EtOH W/d. Continue monitoring on CIWA. Continue thiamine/MVI. Replete Folate. (6) DVT prophylaxis: Status: Acute Assessment and plan: Full anticoagulation with lovenox (7) Discharge planning issues: Status: Acute Assessment and plan: DNR/DNI as confirmed by my conversation with the patient in his room. Subjective Subjective Interval history since last seen: Mr Dawkins states he worked with PT today and did the exercises and sat in a chair some. He proned for some of the night. He is spending a lot of the day sitting up in bed, however - we discussed how he needed to move more. He stated that the O2 cannula was too short. He is now on 2.5 L of o2 by [place]. Exam Narrative Exam Narrative: General: Pleasant elderly male who is comfortable, sitting up in bed, A&Ox3, on 2.5L of O2 by [place], looks better. HEENT: EOMI, MMM Cardiovascular: RRR, no m/r/g Lungs: Rales at L lung base Gastrointestinal: soft, nontender, nondistended Extremities: no edema BLE's Objective Last Vital Signs Temp 36.7 C 10/12/21 14:38 Pulse 65 10/12/21 16:00 Resp 18 10/12/21 14:38 BP 121/75 10/12/21 14:38 Pulse Ox 89 L 10/12/21 15:36 Laboratory Results - last 24 hr 10/12/21 10/12/21 10/12/21 07:45 07:45 07:45 WBC RBC Hgb Hct MCV MCH MCHC RDW Plt Count MPV Immature Gran % Neutrophils % Lymphocytes % Monocytes % Eosinophils % Basophils % Nucleated RBC % Absolute Neutrophils Absolute Lymphocytes Absolute Monocytes Absolute Eosinophils Absolute Basophils PT 13.7 H INR 1.4 H D-Dimer 1370 H Sodium 135 L Potassium 4.0 Chloride 103 Carbon Dioxide 23.6 Anion Gap 8.4 BUN 32 H Creatinine 0.8 Estimated GFR/1.73 m2 >= 60.00 Glucose 89 Calcium 8.9 Phosphorus 4.0 Magnesium 2.2 Total Bilirubin 1.3 H Conjugated Bilirubin 0.5 H AST 67 H ALT 85 H Alkaline Phosphatase 106 C-Reactive Protein 1.50 H Total Protein 6.9 Albumin 2.7 L Procalcitonin 0.1 10/12/21 08:30 WBC 13.17 H RBC 5.35 Hgb 17.6 H D Hct 50.7 H MCV 94.8 MCH 32.9 MCHC 34.7 RDW 13.1 Plt Count 377 MPV 11.2 H Immature Gran % 1.7 Neutrophils % 84.5 Lymphocytes % 7.4 Monocytes % 6.2 Eosinophils % 0.0 Basophils % 0.2 Nucleated RBC % 0 Absolute Neutrophils 11.13 H Absolute Lymphocytes 0.97 L Absolute Monocytes 0.82 H Absolute Eosinophils 0.00 Absolute Basophils 0.03 PT INR D-Dimer Sodium Potassium Chloride Carbon Dioxide Anion Gap BUN Creatinine Estimated GFR/1.73 m2 Glucose Calcium Phosphorus Magnesium Total Bilirubin Conjugated Bilirubin AST ALT Alkaline Phosphatase C-Reactive Protein Total Protein Albumin Procalcitonin
[2021-10-12] MEDS: Melatonin 3 MG TAB PO (23:18)
[2021-10-13] VITALS (9 sets, daily range): BP systolic 96–113; BP diastolic 69–71; PULSE 62–116; RESP 16–23; TEMP 35.4–36.8; O2SAT 88–93
[2021-10-13] MEDS: Enoxaparin 60 MG/0.6 ML SYR SC ×2 (01:05→14:29)
[2021-10-13] MEDS: Ipratropium/Albuterol 4 GM 120 PUFF INH IH ×4 (07:47→21:24)
[2021-10-13] MEDS: Multivitamin w/Minerals TAB 1 TAB PO (08:35)
[2021-10-13] MEDS: Benzonatate 100 MG CAP PO ×3 (08:35→21:23)
[2021-10-13] MEDS: guaiFENesin 600 MG TABCR PO ×2 (08:35→21:23)
[2021-10-13] MEDS: Ascorbic Acid 500 MG TAB 1000 MG PO ×2 (08:35→21:23)
[2021-10-13] MEDS: Folic Acid 1 MG TAB PO (08:35)
[2021-10-13] MEDS: Famotidine 20 MG TAB PO ×2 (08:35→21:23)
[2021-10-13] MEDS: Milk of Magnesia 30 ML CUP PO (08:36)
[2021-10-13] MEDS: Cholecalciferol (Vitamin D3) 1,000 UNIT TAB 2000 UNITS PO (08:36)
[2021-10-13] MEDS: Thiamine 100 MG TAB PO (08:36)
[2021-10-13] MEDS: DOXYCYCLINE 100 MG in Normal Saline 100 ML IVPB (09:57)
[2021-10-13] MEDS: Normal Saline Flush 10 ML SYR IVP ×2 (09:57→11:17)
--- NOTE | 2021-10-13 10:07 | CMPROGNOTE_ITS ---
- If Service Date Differs Date of service: 10/13/21 Time of Service: 10:07 Care Management Progress Note S/O: CM spoke to Bryan over the phone today. He reported that he is likely going to be discharged tomorrow. Per report, he will finish his course of Remdesivir today. He will need new home O2, which is being coordinated by RT. WENDY talked to Marline, his s/o today, who stated that she cannot drive him home, but will be home when he gets there, and she is looking forward to his return. WENDY called his neice, Virginia, who will drive him home, and discussed his new O2, as she will be present when Jane provides his supplies and education for the new O2. Jane called and requested that Virginia meet today to obtain the equipment, WENDY shared her phone number with Jane to coordinate with directly. Bryan is unsure if he needs HH RN, but his family is advocating to have support for the t ransition home. CM will continue to follow. A: Bryan is a 70 year old male admitted to [facility] on 10/07/21 for Covid 19, bacterial pneumonia, hypoxic respiratory failure. P: Bryan will likely return home with new HH RN when medically ready. He will be driven home via private vehicle by family. He will follow up with his PCP and discharge plan of care. CM will continue to support discharge planning needs including need for new home O2, if indicated.
--- NOTE | 2021-10-13 10:48 | PT.INDS ---
PT Notes Visit Reasons: COVID-19,Bacterial Pneumonia,Hypoxic Respiratory Date: 10/13/2021 Dates of Service: 10/12/21 - 10/13/21 Referring Doctor: Omayra Gould MD PT Orders: PT CONSULT: Limited ability Precautions: Fall. Standard. Activity as tolerated. COVID-19 infection. Patient Profile/Admitting Diagnosis: Bryan is a 71-year-old male admitted to the ED on 10/07/2021 with diagnosis of pneumonia due to COVID-19 virus, respiratory failure with hypoxia, transaminitis, and EtOH abuse. PMHX: All Active Problems?(Updated 10/07/21 @ 16:16 by Omayra Gould MD) Discharge planning issues (Acute) DVT prophylaxis (Acute) Secondary bacterial pneumonia (Acute) Hypoxia (Acute) Requires supplemental oxygen (Acute) Respiratory failure with hypoxia (Acute) Transaminitis (Acute) Hyponatremia (Acute) Pneumonia due to COVID-19 virus (Acute) Medical History Alcohol abuse no reported drink for 2 years Social History/Home Situation: Lives with in a private home.? Will aspects of ADLs prior to admission.? Still drives.? Retired dispatcher street department.? Has had no falls in the past year. Equipment Owned/DME: [facility] Subjective: Bryan states that he has been doing a lot of walking in his room this morning. He has done his exercises (as provided by Zora Camacho, PT) twice today, and has added his own exercises to that, as well. He is looking forward to going home when he's ready. Denies any issues with mobility at home. Objective: General Observation: Supine in bed.? Oxygen supplementation via NC. Mental Status: Alert and oriented as to person, place, time, and purpose. Able to pay attention, focus, and respond appropriately. Pain: Denies Vital Signs: monitored on telemetry and pulse oximetry throughout ROM: Right Upper Extremity: ? Shoulder Flexion WFL. Shoulder abduction WFL. Elbow flexion WFL. Wrist flexion WFL. Functional opening and closing of hand WFL. Left Upper Extremity:? Shoulder Flexion WFL. Shoulder abduction WFL. Elbow flexion WFL. Wrist flexion WFL. Functional opening and closing of hand WFL. Right Lower Extremity: Hip flexion WFL. Hip abduction WFL. Knee flexion WFL. Ankle dorsiflexion WFL. Ankle plantarflexion WFL. Left Lower Extremity: Hip flexion WFL. Hip abduction WFL. Knee flexion WFL. Ankle dorsiflexion WFL. Ankle plantarflexion WFL. Strength: Right Upper Extremity: Shoulder flexors 4/5. Shoulder abductors 4/5. Elbow flexors 4/5. Elbow extensors 4/5. Inside Sales Professional strong. Left Upper Extremity: Shoulder flexors 4/5. Shoulder abductors 4/5. Elbow flexors 4/5. Elbow extensors 4/5. Inside Sales Professional strong. Right Lower Extremity: Hip flexors 4-/5. Hip abductors 4-/5. Knee flexors 4/5. Knee extensors 4/5. Ankle dorsiflexors 4-/5. Ankle plantarflexors 4-/5. Left Lower Extremity: Hip flexors 4-/5. Hip abductors 4-/5. Knee flexors 4/5. Knee extensors 4/5. Ankle dorsiflexors 4-/5. Ankle plantarflexors 4-/5. Bed Mobility/Transfers: Rolling independent Supine to sit independent Sit to supine independent Sit to stand independent Stand to sit independent Bed to reclining independent Reclining chair to bed independent Gait: Patient ambulates independently in room throughout session. He independently manages his O2 line and IV pole. Balance: Static Sitting: Normal Dynamic Sitting: Normal Static Standing: Normal Dynamic Standing: Good Special Tests: Mobility Limitations Standardized Measure [facility] 6 clicks Basic Mobility Inpatient Short Form: Raw Score: 24? CMS Score: 0% deficit? ? ? Therapeutic Exercises ([id number]) (15 minutes): Patient was instructed in a progressed therex program. He requires cues for pacing and technique, with good carry over. No HUNTER during completion. 1. standing hip AB 10x each 2. standing hip extension 10x each 3. standing october 30 seconds x 2 4. heel raises 15x 5. standing punch ups Assessment: Patient seen for 2 PT sessions over the course of 2 days. He is demonstrating improved activity tolerance without HUNTER today, and has demonstrated independence with ambulation in his room and with completion of his exercise routine. He was encouraged to continue this over the course of his stay for prevention of deconditioning during hospitalization. At this point, he no longer requires skilled PT intervention and is safe for discharge home once medically stable. Goals: Goals X1 week 1. Independent gait on level surface with use of no AD for at least 300 feet without report of pain nor dyspnea (not assessed, but independent with ambulation in room) 2. Independent with home exercise program (met) 3. Good static and dynamic standing balance/tolerance (met) Plan of Care/Treatment Plan: D/C from PT in acute care setting. DISCHARGE RECOMMENDATIONS: ? Home with no services TREATMENT CODE/TIME: [id number] (10:30-10:45) Thank you for the opportunity to participate in the care of this patient.
[2021-10-13] MEDS: cefTRIAXone 1 GM/50 ML BAG IVPB (11:16)
[2021-10-13] MEDS: Dexamethasone 4 MG/ML VIAL 6 MG IVP (11:16)
[2021-10-13] MEDS: REMDESIVIR 100 MG in Normal Saline 250 ML 250 MG IVPB (14:28)
--- NOTE | 2021-10-13 17:01 | W.PM.PROGNOT ---
Date of Service Date of service: 10/13/21 Time of Service: 16:30 Assessment and Plan Assessment and plan (1) Pneumonia due to COVID-19 virus: Status: Acute Assessment and plan: Continue dexamethasone, baricitinib, bronchodilators. Finished remdesivir today. Encourage IS/acapella. Encourage proning/turning side to side. Antitussives. Wean O2 as tolerated. (2) Secondary bacterial pneumonia: Status: Resolved Assessment and plan: Finish antibiotics. (3) Respiratory failure with hypoxia: Status: Acute Assessment and plan: Due to above. As above. Wean O2 as tolerated. (4) Transaminitis: Status: Acute Assessment and plan: Will need non-emergent imaging of this. Hepatitis studies negative. Suspect due to EtOH. Monitor while on remdesivir. (5) Alcohol abuse: Assessment and plan: No evidence of EtOH W/d. Continue monitoring on CIWA. Continue thiamine/MVI. Replete Folate. (6) DVT prophylaxis: Status: Acute Assessment and plan: Full anticoagulation with lovenox (7) Discharge planning issues: Status: Acute Assessment and plan: DNR/DNI as confirmed by my conversation with the patient in his room. Plan for discharge home tomorrow with home O2 Subjective Subjective Interval history since last seen: Feels better. Down to 1L of O2 at rest and 4L with activity. Excited about going home over the weekend. Denies dizziness, chest pain, shortness of breath, nausea. Has been walking around in his room, doing exercises PT gave him, sitting in a chair. Exam Narrative Exam Narrative: General: Pleasant elderly male who looks well sitting up in a chair, A&Ox3, on 1 L of O2 by NC HEENT: EOMI, MMM Cardiovascular: RRR, no m/r/g Lungs: Rales at L lung base Gastrointestinal: soft, nontender, nondistended Extremities: no edema BLE's Objective Last Vital Signs Temp 35.7 C L 10/13/21 12:07 Pulse 81 10/13/21 12:07 Resp 18 10/13/21 12:07 BP 108/71 10/13/21 12:07 Pulse Ox 93 10/13/21 12:07
[2021-10-13] MEDS: Melatonin 3 MG TAB PO (21:23)
[2021-10-14] MEDS: Enoxaparin 60 MG/0.6 ML SYR SC (01:51)
[2021-10-14 07:38] VITALS: PULSE 65
[2021-10-14] MEDS: Ipratropium/Albuterol 4 GM 120 PUFF INH IH (08:32)
[2021-10-14] MEDS: Cholecalciferol (Vitamin D3) 1,000 UNIT TAB 2000 UNITS PO (08:52)
[2021-10-14] MEDS: Ascorbic Acid 500 MG TAB 1000 MG PO (08:52)
[2021-10-14] MEDS: Multivitamin w/Minerals TAB 1 TAB PO (08:52)
[2021-10-14] MEDS: Famotidine 20 MG TAB PO (08:52)
[2021-10-14] MEDS: Thiamine 100 MG TAB PO (08:52)
[2021-10-14] MEDS: guaiFENesin 600 MG TABCR PO (08:52)
[2021-10-14] MEDS: Benzonatate 100 MG CAP PO (08:53)
[2021-10-14] MEDS: Folic Acid 1 MG TAB PO (08:53)
[2021-10-14] MEDS: Normal Saline Flush 10 ML SYR IVP (08:53)
[2021-10-14 08:58] VITALS: BP 110/66; PULSE 88; RESP 19; TEMP 35.9; O2SAT 91
--- NOTE | 2021-10-14 10:32 | CMDISCH_ITS ---
- If Service Date Differs Date of service: 10/14/21 Time of Service: 10:32 LACE Index Scoring Tool - Questions: Length of Stay (in days): 4 - 6 Acuity (Admit via E.D.?): Yes E.D. Visits: 2 - Answers: Total Score: 9 Risk of Readmission: Low Risk Care Management Discharge Reason for Hospitalization: Covid Pneumonia Discharge Plan: Bryan will likely return home with new HH RN and Home O2 through [facility] when medically ready. He will be driven home via private vehicle by his niece Virginia who also did new O2 education with [facility] yesterday in preparation for discharge needs. He will follow up with his PCP and discharge plan of care. Patient/Family Education Needs: Review discharge instructions, discuss Ask Me Three. Services Needed at Discharge: DME Agency ([facility] O2), Home Health Care Services (New RN: NIMISHA)
--- NOTE | 2021-10-14 11:58 | DSE_ITS ---
Date of service: 10/14/21 Time of Service: 11:58 DS: Diagnosis Discharge Diagnosis (1) Pneumonia due to COVID-19 virus: Status: Acute (2) Secondary bacterial pneumonia: Status: Resolved (3) Respiratory failure with hypoxia: Status: Acute (4) Transaminitis: Status: Acute (5) Alcohol abuse: (6) DVT prophylaxis: Status: Acute (7) Discharge planning issues: Status: Acute Discharge Plan Disposition Patient Disposition: HOME W/HOME HEALTH SERVICE Condition: Improving Discharge Details Reason For Visit: COVID-19,Bacterial Pneumonia,Hypoxic Respiratory Admit Date/Time: 10/07/21 12:28 Admit Provider: Omayra Gould Attending Provider: Omayra Gould Primary Care Provider: Kierra Lopez V Hospital Course Hospital Course: 70-year-old male with a history of alcohol abuse returns to [facility] after leaving the facility AGAINST MEDICAL ADVICE 1 day prior is now admitted for acute hypoxic respiratory failure due to COVID-19. He is requiring 6 L oxygen by nasal cannula with O2 saturation initially 92% on 15 L nonrebreather mask by EMS. Because of elevated procalcitonin level he was initiated on empiric doxycycline and ceftriaxone for possible concomitant bacterial pneumonia. He has had a productive cough of yellowish sputum for the last 2 to 3 days not associate with any fever or rigors. He was admitted for treatment with dexamethasone Remdesivir baricitinib bronchodilators antitussives and use of CPAP. He was placed on doxycycline and ceftriaxone empirically. Patient reported left-sided drink alcohol 1 week prior and is not exhibiting any acute alcohol withdrawal levels. He was started on thiamine and multivitamin supplementation and placed on full anticoagulation with Lovenox. He had confirm with the admitting hospitalist that he is a DNR/DNI status. Patient was treated with baricitinib 4 mg daily from his admission on 10/07/2021 through the day of his discharge on 10/14/2021. He received Rocephin 1 g daily from 10/07/2021 through 10/13/2021. And he received remdesivir from 10/07/2021 through 10/13/2021. His initial white blood cell count was 11,220 and peaked at 16,000 before declining down to 13,000. His CRP which was initially 14 declined down to 1.5 at the time of his discharge. His procalcitonin level which was elevated 0.5 on admission declined down to 0.1 at discharge. Patient initially was only requiring 6 L/min nasal cannula but then his oxygen requirements worsened and he eventually was on high flow nasal cannula at 40 L/min and remained at this level until the morning of 10/10/2021 when he had marked improvement in his oxygen requirements and was weaned down to 4 L/min nasal cannula. Over the next few days his oxygen requirements continued to improve to the point he was only requiring 1.5 L/min. As the patient was feeling markedly better and not experiencing dyspnea with his ADL performance patient was desiring to return home. Home oxygen was set up for him and he was discharged home in markedly improved condition but still requiring supplemental oxygen at 1.5 L/min and was maintaining his oxygen saturations above 90%. His diagnostic studies included a chest CT which had been done prior to his admission this was performed on 10/03/2021 and showed multiple groundglass opacities consistent with a viral pneumonia consistent with his diagnosis of COVID-19 infection. He had no pulmonary embolism. Subsequent chest x-ray obtained on the day of his admission showed bilateral multiple focal opacities consistent with Covid pneumonia. C- spine CT was performed because of complaint of neck pain and this showed no evidence of acute fracture or subluxation with cervical spine. He is noted to have emphysematous changes in his lung apices he has 1 area of spiculation in the right lung apex which appears unchanged from prior study from 2010 and is felt to reflect scarring. Patient was discharged home with new home health services including nursing. Patient will follow up with his primary care provider Dr. Kierra Bautista in the next week. Patient is advised to remain on home isolation through the weekend after which he should continue to wear a mask when in public. However because of the severity of his recent respiratory failure is felt that he should remain at home and seek his medical care at home for the next week until his oxygen status improves enough that he can safely travel outside the home. Home Meds and New Rx's Prescriptions: New benzonatate 100 mg Capsule 100 mg PO TID Qty: 30 0RF albuterol sulfate [Ventolin HFA] 90 mcg/actuation Hfa Aerosol Inhaler 2 puff inhalation Q4H PRN PRNQty: 18 0RF prednisone 20 mg tablet See Rx Instructions .ROUTE .COMPLEX Qty: 11 0RF Rx Instructions: 20 mg orally 2 tabs daily x 3d, 1 tab daily x 3 days, 1/2 tab daily x 3days Discharge Instructions Instructions: COVID-19 (Coronavirus Disease 2019) (DC), COVID-19 and Chronic Health Conditions (DC), COVID-19: Slow the Coronavirus Spread (DC), Face Coverings (Masks) and COVID-19 (DC) Additional Instructions: finish tapering doses of prednisone w/ meals, continue home isolation through the weekend; wear a mask when in public; follow up with Dr. Lopez in the next week Stand Alone Forms: Nursing Discharge Form Referrals: Kierra Lopez MD [Primary Care Provider] - (We will call Saturday to make you an f/u appointment. We will call you with appointment date and time.) Activity:: Activity as Tolerated Equipment/Supplies:: No Equipment Needed Diet:: Normal Diet Discharge Orders Discharge Orders: Discharge Order (Routine); Ordered 10/14/21 Ordered By: Milind Guerrero Discharge Data Discharge Date/Time-TO BE ENTERED AT DEPARTURE: 10/14/21 12:17 DS: Summary Time Spent with Patient providing and/or coordinating discharge services: Greater than 30 minutes Specific discharge activities: Coordination of discharge medications. Completion of prescriptions and discharge instructions. Status at Discharge Functional status at discharge: independent ambulation Overall status at discharge: patient is progressing back to baseline Mental Status: mental status grossly normal Speech and Movement: speech and movement normal Mood: congruent mood Affect: normal affect Exam Narrative Exam Narrative: Elderly white male sitting up at the side of his bed able to converse with me in full conversation without dyspnea. Patient is desiring to return home and is eager to be discharged. Lungs reveal fine bibasilar rales without rhonchi or wheezing he has prolonged expiratory phase. Heart is regular rate and rhythm. Abdomen is soft and nontender. Lower extremities without cyanosis or edema. Psych Mental Status: mental status grossly normal Speech and Movement: speech and movement normal Mood: congruent mood Affect: normal affect DS: Data Vitals/I&O Vitals and I&O: Vital Signs Temperature 35.9 C L 10/14/21 08:58 Temperature Source Tympanic 10/14/21 08:58 Pulse 88 10/14/21 08:58 Pulse Rhythm Regular 10/14/21 08:30 Pulse 57 L 10/11/21 23:20 Respiratory Rate 19 10/14/21 08:58 Respiratory Effort Non-Labored 10/14/21 08:30 Respiratory Depth Normal 10/14/21 08:30 Respiratory Pattern Normal 10/14/21 08:30 Blood Pressure 110/66 10/14/21 08:58 Blood Pressure Mean 66 10/07/21 13:02 Blood Pressure Position Sitting 10/07/21 09:45 Pulse Oximetry 91 L 10/14/21 08:58 Oxygen Delivery Method Nasal Cannula 10/14/21 08:58 Oxygen Flow Rate 1.5 10/14/21 08:58 Fraction of Inspired Oxygen (FIO2) 32 10/12/21 07:36 Pain Level 0 10/14/21 08:58 Comment 10/08/21 08:06 Intake & Output 10/13/21 10/13/21 10/14/21 11:59 23:59 11:59 Intake Total 200 / 200 Balance 200 / 200 Intake: IV 200 / 200 Other: Urine Appearance Clear Clear PFSH All Active Problems (Updated 10/13/21 @ 18:26 by Omayra Gould MD) Discharge planning issues (Acute) DVT prophylaxis (Acute) Hypoxia (Acute) Requires supplemental oxygen (Acute) Respiratory failure with hypoxia (Acute) Transaminitis (Acute) Hyponatremia (Acute) Pneumonia due to COVID-19 virus (Acute) Medical History Alcohol abuse no reported drink for 2 years Social History Smoking/Tobacco Use Status: Never Smoking risk assessment performed?: Yes Alcohol Intake: former Drug use: Never Substance use type: does not use Do you feel safe at home: Yes Do you feel safe in your relationship?: Yes
--- NOTE | 2021-10-14 12:04 | PDOC.HHF2F ---
Home Health Certification Home Health Certification: 1. Encounter Date and Reason I certify that Bryan Dawkins was seen by Milind Guerrero on 10/14/21 and that I had a [id number] encounter with this patient that meets the physician face to face encounter requirements. 2. Clinical Findings Supporting Skilled Need and Homebound Status I certify that home health services are medically necessary, include either intermittent group home and/or physical/speech therapy, and that this patient is homebound in that absences from the home require considerable and taxing effort and are infrequent or of short duration, or are attributable to the need to receive medical care. [X] (a) Attached documentation from encounter provides clinical findings supporting skilled need and homebound status (including what assistance patient requires to leave the home). The encounter with the patient was in whole, or in part, for the following medical condition, which is the primary reason for home health care: COVID-19,Bacterial Pneumonia,Hypoxic Respiratory Detention: Evaluate and treat for hypoxemic secondary to COVID-19 pneumonia. Will monitor respiratory status and coordinate with PCP regarding any change in medications. Coordinate with PCP regarding a follow-up labs. Physical Therapy: Speech Therapy: Homebound: Patient's hypoxemia secondary to his COVID-19 pneumonia limits his ability to seek medical care outside his home without jeopardizing his health. 3. Certification and Authentication I certify that I composed the above information based on my clinical judgement relating to this patient's medical condition and, if applicable, clinical findings communicated to me by the NPP or inpatient physician who performed the Home Health Referral. All further orders will be obtained through Dr. Kierra Bautista (Community Based Physician - PCP)
== END 2021-10-14 12:17 | disposition home health service (06) | DRG 177 ==
LOC: ER 13:31 → MS 10-09 07:41
PROVIDERS: Admitting Provider Internal Medicine; Emergency Provider Physician Assistant; PCP Family Medicine; Visit Provider Internal Medicine
DX: U07.1 COVID-19 (principal); J12.82 Pneumonia due to coronavirus disease 2019; J15.9 Unspecified bacterial pneumonia; J96.01 Acute respiratory failure with hypoxia; R74.01 Elevation of levels of liver transaminase levels; F10.10 Alcohol abuse, uncomplicated; Z66 Do not resuscitate
CPT/HCPCS: 36415; 80048; 80053; 80076; 82306; 82550; 84145; 86704; 86706; 86803; 87040; 87340; 93005; 94618; 94640; 96361; 96365; 96368; 96375; 97110; 97162; 99285; 71045; 72125; 82607; 82728; 82746; 83605; 83735; 84100; 84484; 85025; 85379; 85610; 86140; 93010; 94660; 94668; 99223; 99232; 99239; J0248; J0696; J1100; J1650; J1885; J1941; J2930; J3490; J7620

== ENCOUNTER 2021-11-06 17:41 | Outpatient (REF) | payer MEDICARE, SELFPAY ==
[2021-11-06 18:35] LABS: HCT 42.1 % (40.0-50.0); HGB 13.5 g/dL (13.5-17.5); MCH 31.7 pg (27.0-33.0); MCHC 32.1 % (32.0-36.0); MCV 98.8 fL (80-95); Platelet Count 440 10^3/uL (130-400); RBC 4.26 10^6/uL (4.36-5.78); RDW 14.5 % (11.8-14.1); RDW-SD 52.8 fL; WBC 8.23 10^3/uL (4.4-10.8)
[2021-11-06 18:45] LABS: ALT 30 U/L (16-63); AST 31 U/L (15-37); Alkaline Phosphatase 146 U/L (46-116); Anion Gap 11.1 mmol/L (3-11); BUN 9 mg/dL (7-18); Bilirubin, Total 0.7 mg/dL (0.2-1.0); CO2 23.9 mmol/L (21.0-32.0); CREATININE 0.8 mg/dL (0.70-1.30); Calcium 8.8 mg/dL (8.5-10.1); Calculated LDL 131 mg/dL (<100); Chloride 103 mmol/L (98-107); Cholesterol 201 mg/dL (<200); Glucose 116 mg/dL (74-106); HDL Cholesterol 51 mg/dL (40-60); Potassium 3.9 mmol/L (3.5-5.1); Sodium 138 mmol/L (136-145); Total Protein 7.2 g/dL (6.4-8.2); Triglyceride 98 mg/dL (<150)
[2021-11-08 09:47] LABS: Hepatitis B Surface Ag Negative (Negative)
[2021-11-08 10:28] LABS: HIV-1/2 Ag & Ab Screen Negative (Negative)
[2021-11-08 10:38] LABS: Hepatitis C Ab w Rflx HCV PCR Negative (Negative)
== END 2021-11-06 17:42 | disposition home or self-care (01) ==
LOC: NCHCN 17:41
PROVIDERS: PCP Family Medicine; Visit Provider Family Medicine
DX: R74.01 Elevation of levels of liver transaminase levels (principal); Z13.9 Encounter for screening, unspecified; Z11.4 Encounter for screening for human immunodeficiency virus [HIV]; Z11.59 Encounter for screening for other viral diseases
CPT/HCPCS: 80053; 80061; 85027; 86803; 87340; 87389

== ENCOUNTER 2024-04-18 11:51 | Emergency (ER) | payer MEDICARE, MEDICAID, SELFPAY ==
[2024-04-18] VITALS (23 sets, daily range): BP systolic 135–201; BP diastolic 76–127; PULSE 66–101; RESP 8–24; TEMP 36.6; O2SAT 98
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
--- NOTE | 2024-04-18 12:00 | DI.RAD_ITS ---
Exam(s) XR SHOULDER RT COMPLETE 2+V EXAM: XR SHOULDER RT COMPLETE 2+V CLINICAL HISTORY: Right shoulder pain. TECHNIQUE: 2D digital imaging was performed. Three views. COMPARISON: No exams were available for comparison FINDINGS: BONES: No acute fracture is present. No bony destructive lesion is seen. JOINTS: The humeral head is dislocated anteriorly and inferiorly with relation to the glenoid. Degenerative changes at the AC joint, undersurface of the acromion as well as spurring at the margin of the glenoid. SOFT TISSUE: Normal. IMPRESSION: Anterior shoulder dislocation. DATA REPOSITORY: RADIATION DOSE DELIVERED:
--- NOTE | 2024-04-18 12:51 | DI.VRAD_ITS ---
PROCEDURE INFORMATION: Exam: XR Right Shoulder Exam date and time: 04/18/2024 12:23 PM Age: 73 years old Clinical indication: Other: Right shoulder pain TECHNIQUE: Imaging protocol: Radiologic exam of the right shoulder. Views: 2 or more views. COMPARISON: CT CERVICAL SPINE WO 10/07/2021 10:49 AM FINDINGS: Bones/joints: There is an anterior glenohumeral dislocation. Soft tissues: Unremarkable. IMPRESSION: Anterior glenohumeral dislocation. Dictated and Authenticated by: Linda Frey MD. Ordering:KANU Sibley MD
[2024-04-18] MEDS: Propofol 200 MG/20 ML VIAL 60 MG IVP (13:23)
[2024-04-18] MEDS: fentaNYL 100 MCG/2 ML VIAL 75 MCG IVP (13:57)
[2024-04-18] MEDS: Ketorolac 15 MG/ML VIAL (13:57)
--- NOTE | 2024-04-18 14:35 | DI.RAD_ITS ---
Exam(s) XR SHOULDER RT COMP POST REDUC EXAM: XR SHOULDER RT COMP POST REDUC INDICATION: portable, likely partial reduction. COMPARISON: CR,XR XR SHOULDER RT COMPLETE 2+V from 04/18/2024 TECHNIQUE: 2D digital imaging was performed. Two views. FINDINGS: The exam is labeled post reduction. The humeral head remains dislocated anteriorly and inferiorly with respect to the glenoid. No visibl e fractures. DATA REPOSITORY: RADIATION DOSE DELIVERED:
[2024-04-18] MEDS: fentaNYL 100 MCG/2 ML VIAL (14:44)
--- NOTE | 2024-04-18 15:15 | DI.RAD_ITS ---
Exam(s) XR SHOULDER RT COMP POST REDUC EXAM: XR SHOULDER RT COMP POST REDUC CLINICAL HISTORY: Postreduction. TECHNIQUE: 2D digital imaging was performed. Five views. COMPARISON: CR,XR XR SHOULDER RT COMP POST REDUC from 04/18/2024 FINDINGS: BONES: Hill-Sachs deformity noted at the humeral head. No bony destructive lesion is seen. JOINTS: The previously noted dislocation has been reduced. Degenerative changes noted at the AC join t and glenohumeral joint. SOFT TISSUE: Normal. IMPRESSION: Hill-Sachs deformity status post shoulder dislocation. DATA REPOSITORY: RADIATION DOSE DELIVERED:
--- NOTE | 2024-04-18 15:17 | DI.VRAD_ITS ---
PROCEDURE INFORMATION: Exam: XR Right Shoulder Exam date and time: 04/18/2024 2:30 PM Age: 73 years old Clinical indication: Injury or trauma; Fall; Dislocation; Shoulder; Right; Injury details: Post reduction TECHNIQUE: Imaging protocol: Radiologic exam of the right shoulder. Views: 2 or more views. COMPARISON: CR XR SHOULDER RT COMPLETE 2+V 04/18/2024 12:23 PM FINDINGS: Bones/joints: Persistent anterior dislocation right shoulder. Hill-Sachs deformity humeral head. Soft tissues: Normal. IMPRESSION: Persistent anterior dislocation right shoulder. Dictated and Authenticated by: Zacarias Cole MD. Ordering:ESTELA Shearer MD
--- NOTE | 2024-04-18 15:51 | W.EDPROG ---
Date of service: 04/18/24 Time of Service: 15:51 Medical Decision Making Medical Records Medical records reviewed: Yes I reviewed the patient's medical records. Quality:SDOH Health Related Social Needs: No Data to Display Procedures Orthopedic Joint Reduction Joint #1: Time Out Performed: Yes Side: right Joint Reduction Location: shoulder Analgesia: procedural sedation and other (See Dr. Ham's note for sedation) Shoulder Technique Used (if applicable): traction/counter-traction and external rotation Post-reduction neuro exam: intact Post-reduction vascular: intact Post Reduction X-Ray Obtained: Yes Post Reduction X-Ray Results: not reduced Splint Applied: No Patient Tolerated Procedure: well Additional Comments: Attempted significant countertraction traction with manual inline traction and mild external rotation and flexion of the elbow, I did feel partial reduction possibly came out again before repeating x-ray which showed improved but not reduced shoulder, subsequent reduction was attempted by Dr. Walls see his note Discharge Plan Disposition Patient Disposition: Home Discharge Details Clinical Impression: Anterior dislocation of right glenohumeral joint Primary Care Provider: Kierra Lopez V ED Provider: Toñito Ham Home Meds and New Rx's Prescriptions: Continued benzonatate 100 mg Capsule 100 mg PO TID Qty: 30 0RF albuterol sulfate [Ventolin HFA] 90 mcg/actuation Hfa Aerosol Inhaler 2 puff inhalation Q4H PRN PRNQty: 18 0RF prednisone 20 mg tablet See Rx Instructions .ROUTE .COMPLEX Qty: 11 0RF Rx Instructions: 20 mg orally 2 tabs daily x 3d, 1 tab daily x 3 days, 1/2 tab daily x 3days Discharge Instructions Instructions: Shoulder Dislocation
--- NOTE | 2024-04-18 16:57 | DI.VRAD_ITS ---
PROCEDURE INFORMATION: Exam: XR Right Shoulder Exam date and time: 04/18/2024 4:15 PM Age: 73 years old Clinical indication: Other: Post red TECHNIQUE: Imaging protocol: Radiologic exam of the right shoulder. Views: 2 or more views. COMPARISON: CR XR SHOULDER RT COMP POST REDUC 04/18/2024 2:30 PM FINDINGS: Bones/joints: Previous anterior dislocation has been reduced. Alignment anatomic. Hill-Sachs deformity humeral head. Soft tissues: Normal. IMPRESSION: Previous anterior dislocation has been reduced. Alignment anatomic. Dictated and Authenticated by: Zacarias Cole MD. Ordering:KANU Sibley MD
== END 2024-04-18 16:37 | disposition home or self-care (01) ==
PROVIDERS: Emergency Provider Emergency Medicine; PCP Family Medicine
DX: S43.014A Anterior dislocation of right humerus, initial encounter (principal); V27.49XA Other motorcycle driver injured in collision with fixed or stationary object in traffic accident, initial encounter
CPT/HCPCS: 00123; 23650; 73030; 96374; 99152; 99156; 99285; J1885; J2704; J3010

== ENCOUNTER 2024-05-19 14:19 | Outpatient (CLI) | payer MEDICARE, MEDICAID, SELFPAY ==
--- NOTE | 2024-05-19 13:52 | DI.RAD_ITS ---
Exam(s) XR SHOULDER RT COMPLETE 2+V EXAM: XR SHOULDER RT COMPLETE 2+V CLINICAL HISTORY: RIGHT SHOULDER PAIN. TECHNIQUE: 2D digital imaging was performed of the right shoulder. Two images were obtained. Grash ey and Y views were obtained. COMPARISON: CR,XR XR SHOULDER RT COMP POST REDUC from 04/18/2024 CR,XR XR SHOULDER RT COMPLETE 2+V from 04/18/2024 FINDINGS: BONES: No acute fracture is present. No bony destructive lesion is seen. JOINTS: No dislocation present. Degenerative changes are seen at the acromioclavicular joint. SOFT TISSUE: There is a tiny density at the lateral aspect of the acromion which is chronic. IMPRESSION: No acute fracture or dislocation. DATA REPOSITORY: RADIATION DOSE DELIVERED:
== END 2024-05-19 14:20 | disposition home or self-care (01) ==
LOC: DIORS 14:20
PROVIDERS: PCP Family Medicine; Referring Provider Family Medicine; Visit Provider Physician Assistant
DX: S42.201A Unspecified fracture of upper end of right humerus, initial encounter for closed fracture; S43.004A Unspecified dislocation of right shoulder joint, initial encounter; W01.0XXA Fall on same level from slipping, tripping and stumbling without subsequent striking against object, initial encounter
CPT/HCPCS: 99213; 73030